=== PATIENT | female | born 1990 | race American Indian/Alaskan Native ===

== ENCOUNTER 2017-01-08 22:34 | Emergency (ER) | payer MEDICAID ==
[2017-01-09 00:55] LABS: Bacteria,Urine 3+ /HPF (Negative); Bilirubin,Urine NEG (Negative); Blood,Urine NEG (Negative); Ketones,Urine NEG (Negative); Leukocyte Esterase,Urine TR (Negative); Mucus,Urine FEW /HPF; Nitrite,Urine NEG (Negative); Protein,Urine <15 mg/dL mg/dL (Negative); Urobilinogen,Urine < 2.0 mg/dL (<2.0)
[2017-01-09 01:51] VITALS: BP 125/79
[2017-01-09] MEDS ORDERED: DEPO-MEDROL IM ONE (03:35)
[2017-01-09] MEDS ORDERED: BENADRYL PO ONE (03:35)
--- NOTE | 2017-01-09 03:36 | Emergency Department Report ---
ED General Adult HPI - General Chief complaint: Skin Rash Stated complaint: RASH/POSS BLADDER INFECTION Time Seen by Provider: 01/09/17 03:01 Source: patient Mode of arrival: Ambulatory Limitations: No Limitations - History of Present Illness Initial comments: Patient complains of itchy red spots to both arms x one week. States starts off as red bumps that itch, which then gradually fade away. Reports a lot of itching, NO pain. States when one resolves others recurs. Denies known allergy or exposure. Denies throat swelling or difficulty breathing, facial swelling, weakness, assess, fever, chills, nausea, vomiting. Patient reports frequent urination for about a week without painful urination, abdomen or flank pain, pelvic or vaginal pain. No other acute complaints today. LMP 12/24/16 Severity scale (0 -10): 0 - Related Data Previous Rx's Medication Instructions Recorded Last Taken Type Loratadine/Pseudoephedrine 1 tab PO Q12H PRN #30 tablet 01/09/17 Unknown Rx [Claritin-D 12HR] Nitrofurantoin Stevens/M-Cryst 100 mg PO Q12HR #6 capsule 01/09/17 Unknown Rx [Macrobid CAP] Prednisone [predniSONE 10 mg 10 mg PO .TAPER #1 tab.ds.pk 01/09/17 Unknown Rx (6-Day Pack, 21 Tabs)] Allergies Allergy/AdvReac Type Severity Reaction Status Date / Time Penicillins Allergy Itching Verified 01/08/17 11:10 ED Review of Systems ROS: Stated complaint: RASH/POSS BLADDER INFECTION Other details as noted in HPI Comment: All other systems reviewed and negative ED Past Medical Hx - Past Medical History Previous Medical History?: No Additional medical history: fibroids - Surgical History Past Surgical History?: No - Social History Smoking Status: Never Smoker Substance Use Type: None - Medications Home Medications: Home Medications Medication Instructions Recorded Confirmed Last Taken Type Loratadine/Pseudoephedrine 1 tab PO Q12H PRN #30 tablet 01/09/17 Unknown Rx [Claritin-D 12HR] Nitrofurantoin Stevens/M-Cryst 100 mg PO Q12HR #6 capsule 01/09/17 Unknown Rx [Macrobid CAP] Prednisone [predniSONE 10 mg 10 mg PO .TAPER #1 tab.ds.pk 01/09/17 Unknown Rx (6-Day Pack, 21 Tabs)] ED Physical Exam - General Limitations: No Limitations General appearance: alert, in no apparent distress - Head Head exam: Present: atraumatic, normocephalic - Eye Eye exam: Present: normal appearance, PERRL, EOMI. Absent: scleral icterus, conjunctival injection, periorbital swelling, periorbital tenderness - ENT ENT exam: Present: normal exam, normal orophraynx, mucous membranes moist, TM's normal bilaterally, normal external ear exam - Neck Neck exam: Present: normal inspection, full ROM. Absent: tenderness, meningismus, lymphadenopathy - Respiratory Respiratory exam: Present: normal lung sounds bilaterally. Absent: respiratory distress - Cardiovascular Cardiovascular Exam: Present: regular rate, normal rhythm - GI/Abdominal GI/Abdominal exam: Present: soft, normal bowel sounds. Absent: distended, tenderness, guarding, rebound, rigid - Extremities Exam Extremities exam: Present: full ROM, normal capillary refill. Absent: tenderness, pedal edema, joint swelling - Back Exam Back exam: Present: normal inspection, full ROM. Absent: tenderness, CVA tenderness (R), CVA tenderness (L) - Neurological Exam Neurological exam: Present: alert, oriented X3, normal gait. Absent: motor sensory deficit - Psychiatric Psychiatric exam: Present: normal affect, normal mood - Skin Skin exam: Present: warm, dry, intact, erythema, urticaria (b/l UE display multiple erythematous wheals varying sizes. No weeping. No crusting.). Absent : cyanosis, diaphoretic, petechiae, pallor, abrasion, ecchymosis ED Course Vital Signs 01/08/17 01/09/17 22:46 01:50 Temperature 97.5 F L 98.4 F Pulse Rate 85 75 Respiratory 18 20 Rate Blood Pressure 119/75 Blood Pressure 125/79 [Right] O2 Sat by Pulse 100 99 Oximetry ED Medical Decision Making - Medical Decision Making 26-year-old female with urticaria rash and UTI. Patient is stable in no apparent cardiopulmonary distress. She will be DC'd on oral Macrobid, prednisone pack, and Claritin (see prescriptions). Patient education, follow-up /referral, and return instructions provided. She verbalized understanding and is agreeable to plan. Critical care attestation.: If time is entered above; I have spent that time in minutes in the direct care of this critically ill patient, excluding procedure time. ED Disposition Clinical Impression: Hives UTI (urinary tract infection) Qualifiers: Urinary tract infection type: site unspecified Hematuria presence: without hematuria Qualified Code(s): N39.0 - Urinary tract infection, site not specified Disposition: DISCHARGED TO HOME OR SELFCARE Is pt being admited?: No Does the pt Need Aspirin: No Condition: Stable Instructions: Urinary Tract Infection in Women (ED), Urticaria (ED) Prescriptions: Loratadine/Pseudoephedrine [Claritin-D 12HR] 1 tab PO Q12H PRN #30 tablet PRN Reason: Itching Nitrofurantoin Stevens/M-Cryst [Macrobid CAP] 100 mg PO Q12HR #6 capsule Prednisone [predniSONE 10 mg (6-Day Pack, 21 Tabs)] 10 mg PO .TAPER #1 tab.ds.pk Referrals: [facility] [Outside] - 2-3 Days PRIMARY CARE, [Primary Care Provider] - 2-3 Days EDNA WEIR MD [Staff Physician] - 3-5 Days
== END 2017-01-09 04:00 | disposition home or self-care (01) ==
LOC: ED 22:34
DX: N39.0 Urinary tract infection, site not specified (principal); L50.9 Urticaria, unspecified; Z88.0 Allergy status to penicillin
CPT/HCPCS: 81001; 96372; 99283; J1040

== ENCOUNTER 2017-01-18 06:15 | Emergency (ER) | payer MEDICAID ==
[2017-01-18 07:01] VITALS: BP 113/69
--- NOTE | 2017-01-18 08:15 | Emergency Department Report ---
- General Chief Complaint: Upper Respiratory Infection Stated Complaint: THROAT PAIN/CONGESTION Time Seen by Provider: 01/18/17 08:10 Source: patient Mode of arrival: Ambulatory Limitations: No Limitations - History of Present Illness Initial Comments: 26-year-old -[place] female comes in for complaint of sore throat and nonproductive cough 2-3 days with chest congestion and sneezing and runny nose. She denies any fever or chills no nausea no vomiting no ear itching no eye drainage. She has taken no medications. Asked medical history she currently takes no medication on a daily basis. MD Complaint: cough, sore throat, rhinorrhea, nasal congestion - Related Data Previous Rx's Medication Instructions Recorded Last Taken Type Loratadine/Pseudoephedrine 1 tab PO Q12H PRN #30 tablet 01/09/17 Unknown Rx [Claritin-D 12HR] Nitrofurantoin [place]/M-Cryst 100 mg PO Q12HR #6 capsule 01/09/17 Unknown Rx [Macrobid CAP] Prednisone [predniSONE 10 mg 10 mg PO .TAPER #1 tab.ds.pk 01/09/17 Unknown Rx (6-Day Pack, 21 Tabs)] Fluticasone [Flonase] 1 spray NS QDAY #1 bottle 01/18/17 Unknown Rx Ibuprofen [Motrin 600 MG tab] 600 mg PO Q8H PRN #45 tablet 01/18/17 Unknown Rx Loratadine/Pseudoephedrine 1 each PO BID #60 tab.er.12h 01/18/17 Unknown Rx [Allergy-Congestion Rlf-D 12Hr] Allergies Allergy/AdvReac Type Severity Reaction Status Date / Time Penicillins Allergy Itching Verified 01/08/17 11:10 ED Review of Systems ROS: Stated complaint: THROAT PAIN/CONGESTION Other details as noted in HPI Constitutional: denies: chills, fever Eyes: denies: eye pain, eye discharge, vision change ENT: throat pain, congestion (nasal congestion), other (sneezing) Respiratory: cough Cardiovascular: denies: chest pain, palpitations Gastrointestinal: denies: abdominal pain, nausea, diarrhea Genitourinary: denies: urgency, dysuria, discharge ED Past Medical Hx - Past Medical History Previous Medical History?: Yes Additional medical history: fibroids - Surgical History Past Surgical History?: No - Social History Smoking Status: Never Smoker - Medications Home Medications: Home Medications Medication Instructions Recorded Confirmed Last Taken Type Loratadine/Pseudoephedrine 1 tab PO Q12H PRN #30 tablet 01/09/17 Unknown Rx [Claritin-D 12HR] Nitrofurantoin [place]/M-Cryst 100 mg PO Q12HR #6 capsule 01/09/17 Unknown Rx [Macrobid CAP] Prednisone [predniSONE 10 mg 10 mg PO .TAPER #1 tab.ds.pk 01/09/17 Unknown Rx (6-Day Pack, 21 Tabs)] Fluticasone [Flonase] 1 spray NS QDAY #1 bottle 01/18/17 Unknown Rx Ibuprofen [Motrin 600 MG tab] 600 mg PO Q8H PRN #45 tablet 01/18/17 Unknown Rx Loratadine/Pseudoephedrine 1 each PO BID #60 tab.er.12h 01/18/17 Unknown Rx [Allergy-Congestion Rlf-D 12Hr] ED Physical Exam - General Limitations: No Limitations General appearance: alert, in no apparent distress - Head Head exam: Present: atraumatic, normocephalic - Eye Eye exam: Present: normal appearance, PERRL, EOMI Pupils: Present: normal accommodation - ENT ENT exam: Present: mucous membranes moist, TM's normal bilaterally - Neck Neck exam: Present: normal inspection. Absent: tenderness, lymphadenopathy - Respiratory Respiratory exam: Present: normal lung sounds bilaterally. Absent: respiratory distress - Cardiovascular Cardiovascular Exam: Present: regular rate, normal rhythm. Absent: systolic murmur, diastolic murmur, rubs, gallop - GI/Abdominal GI/Abdominal exam: Present: soft, normal bowel sounds ED Course Vital Signs 01/18/17 06:32 Temperature 98.8 F Pulse Rate 85 Respiratory 18 Rate Blood Pressure 113/69 O2 Sat by Pulse 100 Oximetry ED Medical Decision Making - Medical Decision Making Patient's been evaluated by this provider fast track. We will discharge patient on Jahaira-D, ibuprofen 600 mg by mouth 3 times a day, Flonase 50 g 1 spray to each nostril daily. Have her follow-up with her primary care provider. Critical care attestation.: If time is entered above; I have spent that time in minutes in the direct care of this critically ill patient, excluding procedure time. ED Disposition Clinical Impression: Seasonal allergies Qualifiers: Allergic rhinitis trigger: unspecified Qualified Code(s): J30.2 - Other seasonal allergic rhinitis Disposition: DISCHARGED TO HOME OR SELFCARE Is pt being admited?: No Does the pt Need Aspirin: No Instructions: Allergies (ED) Additional Instructions: Take medications as prescribed. 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 Prescriptions: Fluticasone [Flonase] 1 spray NS QDAY #1 bottle Ibuprofen [Motrin 600 MG tab] 600 mg PO Q8H PRN #45 tablet PRN Reason: Pain Loratadine/Pseudoephedrine [Allergy-Congestion Rlf-D 12Hr] 1 each PO BID #60 tab.er.12h Referrals: PRIMARY CAREMD [Primary Care Provider] - 3-5 Days SALTY SAHU MD [Staff Physician] - 3-5 Days [facility] [Provider Group] - 3-5 Days Forms: Work/School Release Form(ED)
== END 2017-01-18 08:48 | disposition home or self-care (01) ==
LOC: ED 06:15
DX: J30.2 Other seasonal allergic rhinitis (principal)
CPT/HCPCS: 99282

== ENCOUNTER 2017-05-07 10:57 | Emergency (ER) | payer SELFPAY ==
[2017-05-07 11:11] VITALS: BP 122/65
[2017-05-07] MEDS: TORADOL IM ONE (12:29)
[2017-05-07] MEDS: REGLAN PO ONE (12:29)
--- NOTE | 2017-05-07 18:49 | Emergency Department Report ---
Entered by ISAAC ULLOA, acting as scribe for WILBUR VIERA NP. ED Headache HPI - General Chief Complaint: Headache Stated Complaint: SEVERE HEADACHES Time Seen by Provider: 05/07/17 12:17 Source: patient, family Exam Limitations: no limitations - History of Present Illness Initial Comments: This is a 26 y/o female, nontoxic, well nourished in appearance, no acute signs of distress with PMHx of headaches, presents with headache that began 2 days ago and became worse today. Denies vision changes, nausea, sinus pressure, cough , wheezing. vomiting, abdominal pain, SOB, chest pain, thunderclap headache, dizziness, stiff neck, fever and chills. Pain is described as frontal, achy, and 10/10 on a severity scale. Patient has experienced similar symptoms in the past but today's symptoms are worse. Patient stated has chronic headaches for the past years. Denies any alleviating factors despite taking Tylenol DBA and no aggravating factors. Allergic to penicillins. Timing/Duration: increasing Quality: severe Head Injury Location: frontal Recent Head Trauma: no recent headache/trauma, chronic headaches Associated Symptoms: denies symptoms. denies: confusion, fatigue, facial pain, fever/chills, flushing, loss of consciousness, nausea/vomiting, nasal congestion , nasal drainage, numbness in legs/feet, seizures, stiff neck, vision changes, weakness, other (SOB, chest pain) Allergies/Adverse Reactions: Allergies Penicillins Allergy (Verified 01/08/17 11:10) Itching Home Medications: Ambulatory Orders Loratadine/Pseudoephedrine [Claritin-D 12HR] 1 tab PO Q12H PRN #30 tablet Nitrofurantoin [place]/M-Cryst [Macrobid CAP] 100 mg PO Q12HR #6 capsule 01/09/17 Prednisone [predniSONE 10 mg (6-Day Pack, 21 Tabs)] 10 mg PO .TAPER #1 tab.ds.pk 01/09/17 Fluticasone [Flonase] 1 spray NS QDAY #1 bottle 01/18/17 Ibuprofen [Motrin 600 MG tab] 600 mg PO Q8H PRN #45 tablet 01/18/17 Loratadine/Pseudoephedrine [Allergy-Congestion Rlf-D 12Hr] 1 each PO BID #60 tab.er.12h 01/18/17 Ibuprofen [Motrin 600 MG tab] 600 mg PO Q8H PRN #30 tablet 05/07/17 ED Review of Systems Comment: All other systems reviewed and negative Constitutional: denies: chills, fever Eyes: denies: vision change ENT: denies: ear pain, throat pain Respiratory: denies: shortness of breath Cardiovascular: denies: chest pain Endocrine: no symptoms reported Gastrointestinal: denies: abdominal pain, nausea, vomiting Genitourinary: denies: urgency, dysuria, discharge Musculoskeletal: denies: back pain, joint swelling, arthralgia Skin: denies: rash, lesions Neurological: headache Psychiatric: denies: anxiety, depression Hematological/Lymphatic: denies: easy bleeding, easy bruising ED Past Medical Hx - Past Medical History Previous Medical History?: Yes Additional medical history: fibroids, Vaginal dleivery x 3 - Surgical History Past Surgical History?: No - Social History Smoking Status: Never Smoker Substance Use Type: Non Opiate Pain - Medications Home Medications: Home Medications Medication Instructions Recorded Confirmed Last Taken Type Loratadine/Pseudoephedrine 1 tab PO Q12H PRN #30 tablet 01/09/17 Unknown Rx [Claritin-D 12HR] Nitrofurantoin [place]/M-Cryst 100 mg PO Q12HR #6 capsule 01/09/17 Unknown Rx [Macrobid CAP] Prednisone [predniSONE 10 mg 10 mg PO .TAPER #1 tab.ds.pk 01/09/17 Unknown Rx (6-Day Pack, 21 Tabs)] Fluticasone [Flonase] 1 spray NS QDAY #1 bottle 01/18/17 Unknown Rx Ibuprofen [Motrin 600 MG tab] 600 mg PO Q8H PRN #45 tablet 01/18/17 Unknown Rx Loratadine/Pseudoephedrine 1 each PO BID #60 tab.er.12h 01/18/17 Unknown Rx [Allergy-Congestion Rlf-D 12Hr] Ibuprofen [Motrin 600 MG tab] 600 mg PO Q8H PRN #30 tablet 05/07/17 Unknown Rx ED Physical Exam - General Limitations: No Limitations General appearance: alert, in no apparent distress - Head Head exam: Present: atraumatic, normocephalic, normal inspection - Eye Eye exam: Present: normal appearance, PERRL, EOMI. Absent: scleral icterus, conjunctival injection, nystagmus, periorbital swelling, periorbital tenderness Pupils: Present: normal accommodation - ENT ENT exam: Present: normal exam, normal orophraynx, mucous membranes moist, TM's normal bilaterally, normal external ear exam - Neck Neck exam: Present: normal inspection, full ROM. Absent: tenderness, meningismus, lymphadenopathy, thyromegaly - Respiratory Respiratory exam: Present: normal lung sounds bilaterally. Absent: respiratory distress, wheezes, rales, rhonchi, stridor, chest wall tenderness, accessory muscle use, decreased breath sounds, prolonged expiratory - Cardiovascular Cardiovascular Exam: Present: regular rate, normal rhythm, normal heart sounds. Absent: bradycardia, tachycardia, irregular rhythm, systolic murmur, diastolic murmur, rubs, gallop - GI/Abdominal GI/Abdominal exam: Present: soft, normal bowel sounds. Absent: distended, tenderness, guarding, rebound, rigid, diminished bowel sounds - Extremities Exam Extremities exam: Present: normal inspection, full ROM, normal capillary refill. Absent: tenderness, pedal edema, joint swelling, calf tenderness - Back Exam Back exam: Present: normal inspection, full ROM. Absent: tenderness, CVA tenderness (R), CVA tenderness (L), muscle spasm, paraspinal tenderness, vertebral tenderness, rash noted - Neurological Exam Neurological exam: Present: alert, oriented X3, CN II-XII intact, normal gait - Expanded Neurological Exam Expanded Patient oriented to: Present: person, place, time Speech: Present: fluid speech (normal speech) Cranial nerves: EOM's Intact: Normal, Gag Reflex: Normal, Tongue Deviation: Normal, Nystagmus: Normal, Facial Sensation: Normal, Facial Palsy with Forehead Movement: Normal, Facial Palsy without Forehead Movement: Normal Cerebellar function: Finger to Nose: Normal, Heel to Harman: Normal, Romberg: Normal Upper motor neuron: Jordon Neglect: Normal, Pronator Drift: Normal, Babinski Sign : Normal, Sensory Extinction: Normal Sensory exam: Upper Extremity Light Touch: Normal, Upper Extremity Pin Prick: Normal, Upper Extremity Temperature: Normal, UE 2 Point Discrimination: Normal, Lower Extremity Light Touch: Normal, Lower Extremity Pin Prick: Normal, Lower Extremity Temperature: Normal, LE 2 Point Discrimination: Normal Motor strength exam: RUE: 5, LUE: 5, RLE: 5, LLE: 5 DTR: bicep (R): 2+, bicep (L): 2+, tricep (R): 2+, tricep (L): 2+, knee (R): 2+ , knee (L): 2+, ankle (R): 2+, ankle (L): 2+ Best Eye Response (Dumont): (4) open spontaneously Best Motor Response (Dumont): (6) obeys commands Best Verbal Response (Sugey): (5) oriented Dumont Total: 15 - Psychiatric Psychiatric exam: Present: normal affect, normal mood - Skin Skin exam: Present: warm, dry, intact, normal color. Absent: rash ED Course Vital Signs 05/07/17 11:08 Temperature 98.2 F Pulse Rate 83 Respiratory 18 Rate Blood Pressure 122/65 O2 Sat by Pulse 97 Oximetry - Reevaluation(s) Reevaluation #1: 05/07/17 12:51 Patient stated headache has subsided after receiving Toradol IM in ED. Patient did level is a 0 out of 10 currently. ED Medical Decision Making - Medical Decision Making ED course: This is a 26-year-old female that presents with chronic headache. 1- after my physical exam patient received Toradol 60 mg by mouth in the ED- patient stated symptoms have subsided to 0 out of 10 headache. Patient also stated had a kidney function test as well as other labs by her primary care doctor 3 months with normal results. 2- patient received ibuprofen 600 mg by mouth at the time of discharge and was instructed to follow-up with her primary care doctor in 3-5 days or if symptoms worsen such as thunderclap headache, nausea, vomiting, chest pain, short of breath, blurry vision or visual changes report back to emergency room as was possible 3- at time time of discharge, the patient does not seem toxic or ill in appearance. No acute signs of distress noted. Patient agrees to discharge treatment plan of care. No further questions noted by the patient. ED Disposition Clinical Impression: Headache Qualifiers: Headache type: unspecified Headache chronicity pattern: chronic headache Intractability: not intractable Qualified Code(s): R51 - Headache Disposition: DC-01 TO HOME OR SELFCARE Is pt being admited?: No Does the pt Need Aspirin: No Condition: Stable Instructions: Acute Headache (ED), Ibuprofen (By mouth) Additional Instructions: follow-up with your primary care doctor in 3-5 days or if symptoms worsen such as thunderclap headache, nausea, vomiting, chest pain, short of breath, blurry vision or visual changes report back to emergency room as was possible Take ibuprofen for pain as needed Prescriptions: Ibuprofen [Motrin 600 MG tab] 600 mg PO Q8H PRN #30 tablet PRN Reason: Pain Referrals: PRIMARY CAREMD [Primary Care Provider] - 3-5 Days COLLETTE SMART JR, MD [Staff Physician] - 3-5 Days [facility] [Outside] - 3-5 Days [facility] [Outside] - 3-5 Days Forms: Work/School Release Form(ED) This documentation as recorded by the ARTEMIO shanks ELIZABETH,accurately reflects the service I personally performed and the decisions made by ,WILBUR VIERA, EMA.
== END 2017-05-07 13:00 | disposition home or self-care (01) ==
LOC: ED 10:57
DX: R51 Headache (principal)
CPT/HCPCS: 96372; 99282; J1885

== ENCOUNTER 2017-06-21 21:39 | Emergency (ER) | payer SELFPAY ==
[2017-06-21 22:12] LABS: Basophils % (Auto) 0.7 % (0.0-1.8); Eosinophils % (Auto) 1.2 % (0.0-4.3); Hematocrit 35.6 % (30.3-42.9); Hemoglobin 11.9 gm/dl (10.1-14.3); Mean Corpuscular HGB Conc 33 % (30-34); Mean Corpuscular Hemoglobin 31 pg (28-32); Mean Corpuscular Volume 93 fl (79-97); Platelet Count 310 K/mm3 (140-440); Red Blood Count 3.83 M/mm3 (3.65-5.03); Red Cell Distribution Width 13.7 % (13.2-15.2); White Blood Count 7.5 K/mm3 (4.5-11.0)
[2017-06-21 22:34] LABS: Alanine Aminotransferase 10 units/L (7-56); Albumin 3.9 g/dL (3.9-5); Albumin/Globulin Ratio 1.1 %; Alkaline Phosphatase 47 units/L (35-129); Anion Gap 17 mmol/L; BUN/Creatinine Ratio 22.85; Blood Urea Nitrogen 16 mg/dL (7-17); Calcium 8.9 mg/dL (8.4-10.2); Carbon Dioxide 24 mmol/L (22-30); Chloride 101.1 mmol/L (98-107); Glucose 92 mg/dL (65-100); Lipase 34 units/L (13-60); Potassium 3.9 mmol/L (3.6-5.0); Sodium 138 mmol/L (137-145); Total Protein 7.3 g/dL (6.3-8.2)
[2017-06-21 23:50] LABS: Bilirubin,Urine NEG (Negative); Blood,Urine NEG (Negative); Ketones,Urine NEG (Negative); Leukocyte Esterase,Urine SM (Negative); Mucus,Urine FEW /HPF; Nitrite,Urine NEG (Negative); Protein,Urine <15 mg/dL mg/dL (Negative)
[2017-06-22] MEDS ORDERED: TORADOL IV ONE (04:31)
[2017-06-22] MEDS ORDERED: NACL 0.9% 1000 ML 1,000 ML IV ONE (04:31)
[2017-06-22] MEDS ORDERED: MORPHINE IV ONE (04:31)
--- NOTE | 2017-06-22 04:32 | Emergency Department Report ---
ED Abdominal Pain HPI - General Chief Complaint: Abdominal Pain Stated Complaint: ABD PAIN Time Seen by Provider: 06/22/17 04:20 Source: patient Mode of arrival: Ambulatory Limitations: No Limitations - History of Present Illness Initial Comments: This is a 26-year-old female. She is previously unknown to me. She does not have a primary care doctor or diver assistant. The patient presents to the ER complaining of suprapubic and right lower quadrant pain. The pain is achy and intermittent. It increases with palpation and decreases with rest. It does not radiate anywhere. There is no nausea, vomiting or diarrhea. No irritative or obstructive urinary symptoms. Patient denies dysuria but admits to frequent urination. She also complains of mild discomfort and a vaginal discharge. Patient has had a few sexual partners in the past year, typically does not wear condoms. MD Complaint: abdominal pain -: Gradual Location: LLQ, RLQ, suprapubic Migration to: no migration Severity: mild Severity scale (0 -10): 3 Quality: cramping Consistency: intermittent Improves With: rest Worsens With: movement Associated Symptoms: denies: nausea, vomiting, dysuria - Related Data Previous Rx's Medication Instructions Recorded Last Taken Type Loratadine/Pseudoephedrine 1 tab PO Q12H PRN #30 tablet 01/09/17 Unknown Rx [Claritin-D 12HR] Nitrofurantoin [place]/M-Cryst 100 mg PO Q12HR #6 capsule 01/09/17 Unknown Rx [Macrobid CAP] Prednisone [predniSONE 10 mg 10 mg PO .TAPER #1 tab.ds.pk 01/09/17 Unknown Rx (6-Day Pack, 21 Tabs)] Fluticasone [Flonase] 1 spray NS QDAY #1 bottle 01/18/17 Unknown Rx Ibuprofen [Motrin 600 MG tab] 600 mg PO Q8H PRN #45 tablet 01/18/17 Unknown Rx Loratadine/Pseudoephedrine 1 each PO BID #60 tab.er.12h 01/18/17 Unknown Rx [Allergy-Congestion Rlf-D 12Hr] Ibuprofen [Motrin 600 MG tab] 600 mg PO Q8H PRN #30 tablet 05/07/17 Unknown Rx Ibuprofen [Motrin] 600 mg PO Q8H PRN #30 tablet 06/22/17 Unknown Rx Ondansetron [Zofran Odt] 4 mg PO QID PRN #20 tab.rapdis 06/22/17 Unknown Rx metroNIDAZOLE 0.75% [Vandazole 1 applicator VG QHS #5 tube 06/22/17 Unknown Rx 0.75% VAGINAL] Allergies Allergy/AdvReac Type Severity Reaction Status Date / Time Penicillins Allergy Itching Verified 01/08/17 11:10 ED Review of Systems ROS: Stated complaint: ABD PAIN Other details as noted in HPI Constitutional: denies: fever Eyes: denies: vision change ENT: denies: epistaxis Respiratory: denies: cough Cardiovascular: denies: chest pain Gastrointestinal: abdominal pain Genitourinary: frequency, discharge Musculoskeletal: denies: back pain Skin: denies: lesions Neurological: denies: weakness Psychiatric: denies: depression ED Past Medical Hx - Past Medical History Previous Medical History?: Yes Additional medical history: fibroids, Vaginal dleivery x 3 - Surgical History Past Surgical History?: No - Social History Smoking Status: Never Smoker Substance Use Type: None - Medications Home Medications: Home Medications Medication Instructions Recorded Confirmed Last Taken Type Loratadine/Pseudoephedrine 1 tab PO Q12H PRN #30 tablet 01/09/17 Unknown Rx [Claritin-D 12HR] Nitrofurantoin [place]/M-Cryst 100 mg PO Q12HR #6 capsule 01/09/17 Unknown Rx [Macrobid CAP] Prednisone [predniSONE 10 mg 10 mg PO .TAPER #1 tab.ds.pk 01/09/17 Unknown Rx (6-Day Pack, 21 Tabs)] Fluticasone [Flonase] 1 spray NS QDAY #1 bottle 01/18/17 Unknown Rx Ibuprofen [Motrin 600 MG tab] 600 mg PO Q8H PRN #45 tablet 01/18/17 Unknown Rx Loratadine/Pseudoephedrine 1 each PO BID #60 tab.er.12h 01/18/17 Unknown Rx [Allergy-Congestion Rlf-D 12Hr] Ibuprofen [Motrin 600 MG tab] 600 mg PO Q8H PRN #30 tablet 05/07/17 Unknown Rx Ibuprofen [Motrin] 600 mg PO Q8H PRN #30 tablet 06/22/17 Unknown Rx Ondansetron [Zofran Odt] 4 mg PO QID PRN #20 tab.rapdis 06/22/17 Unknown Rx metroNIDAZOLE 0.75% [Vandazole 1 applicator VG QHS #5 tube 06/22/17 Unknown Rx 0.75% VAGINAL] ED Physical Exam - General Limitations: No Limitations General appearance: alert, in no apparent distress - Head Head exam: Present: atraumatic, normocephalic - Eye Eye exam: Present: normal appearance, EOMI. Absent: nystagmus - ENT ENT exam: Present: normal exam, normal orophraynx, mucous membranes moist, normal external ear exam - Neck Neck exam: Present: normal inspection, full ROM. Absent: tenderness, meningismus - Respiratory Respiratory exam: Present: normal lung sounds bilaterally. Absent: respiratory distress, wheezes, rales, rhonchi, stridor, chest wall tenderness, accessory muscle use, decreased breath sounds, prolonged expiratory - Cardiovascular Cardiovascular Exam: Present: regular rate, normal rhythm, normal heart sounds. Absent: systolic murmur, diastolic murmur, rubs, gallop - GI/Abdominal GI/Abdominal exam: Present: soft, tenderness, normal bowel sounds, other (there is suprapubic and right lower quadrant tenderness to deep palpation. There is no rebound, guarding or peritoneal signs.). Absent: distended, rigid, pulsatile mass - External exam: Present: normal external exam Speculum exam: Present: normal speculum exam, cervical discharge. Absent: vaginal bleeding, foreign body Bi-manual exam: Present: normal bi-manual exam, other (escorted by [facility] during professional nursing assistant exam). Absent: cervical motion tendernes, adnexal tenderness, adnexal mass - Extremities Exam Extremities exam: Present: normal inspection, full ROM, normal capillary refill. Absent: pedal edema, joint swelling, calf tenderness - Back Exam Back exam: Present: normal inspection, full ROM. Absent: tenderness, CVA tenderness (R), CVA tenderness (L), muscle spasm, paraspinal tenderness, vertebral tenderness - Neurological Exam Neurological exam: Present: alert, oriented X3, normal gait, other (Extraocular movements intact. Tongue midline. No facial droop. Facial sensation intact to light touch in the V1, V2, V3 distribution bilaterally. 5 and 5 strength in 4 extremities.. Sensation is intact to light touch in 4 extremities.). Absent : motor sensory deficit - Psychiatric Psychiatric exam: Present: normal affect, normal mood - Skin Skin exam: Present: warm, dry, intact, normal color. Absent: rash ED Course Vital Signs 06/21/17 06/22/17 06/22/17 21:52 02:07 02:10 Temperature 98.3 F Pulse Rate 81 72 72 Respiratory 18 14 16 Rate Blood Pressure 110/62 Blood Pressure 137/85 [Right] O2 Sat by Pulse 99 Oximetry 06/22/17 06/22/17 06/22/17 02:20 02:30 02:40 Temperature Pulse Rate 67 82 68 Respiratory 14 19 21 Rate Blood Pressure 110/62 108/60 108/60 Blood Pressure [Right] O2 Sat by Pulse 99 100 100 Oximetry 06/22/17 06/22/17 06/22/17 02:50 03:00 03:10 Temperature Pulse Rate 69 74 68 Respiratory 19 19 21 Rate Blood Pressure 108/60 112/66 112/66 Blood Pressure [Right] O2 Sat by Pulse 99 99 98 Oximetry 06/22/17 06/22/17 06/22/17 03:20 03:30 03:40 Temperature Pulse Rate 85 77 76 Respiratory 18 18 19 Rate Blood Pressure 112/66 110/68 112/66 Blood Pressure [Right] O2 Sat by Pulse 97 99 99 Oximetry 06/22/17 06/22/17 06/22/17 05:17 05:29 05:30 Temperature Pulse Rate Respiratory 18 18 Rate Blood Pressure 112/66 Blood Pressure [Right] O2 Sat by Pulse 98 Oximetry 06/22/17 06/22/17 06/22/17 06:06 06:10 06:20 Temperature Pulse Rate Respiratory 19 Rate Blood Pressure 112/66 94/51 Blood Pressure [Right] O2 Sat by Pulse 99 99 100 Oximetry 06/22/17 06/22/17 06:30 07:00 Temperature Pulse Rate Respiratory Rate Blood Pressure 94/51 100/55 Blood Pressure [Right] O2 Sat by Pulse 100 95 Oximetry ED Medical Decision Making - Lab Data Result diagrams: 06/21/17 22:01 06/21/17 22:01 Vital Signs 06/21/17 06/22/17 06/22/17 21:52 02:07 02:10 Temperature 98.3 F Pulse Rate 81 72 72 Respiratory 18 14 16 Rate Blood Pressure 110/62 Blood Pressure 137/85 [Right] O2 Sat by Pulse 99 Oximetry 06/22/17 06/22/1706/22/17 02:20 02:30 02:40 Temperature Pulse Rate 67 82 68 Respiratory 14 19 21 Rate Blood Pressure 110/62 108/60 108/60 Blood Pressure [Right] O2 Sat by Pulse 99 100 100 Oximetry 06/22/17 06/22/17 06/22/17 05:29 05:30 06:06 Temperature Pulse Rate Respiratory 18 18 19 Rate Blood Pressure Blood Pressure [Right] O2 Sat by Pulse 99 Oximetry Lab Results 06/21/17 06/21/17 06/21/17 Range/Units 22:01 22:01 22:01 WBC 7.5 (4.5-11.0) K/mm3 RBC 3.83 (3.65-5.03) M/mm3 Hgb 11.9 (10.1-14.3) gm/dl Hct 35.6 (30.3-42.9) % MCV 93 (79-97) fl MCH 31 (28-32) pg MCHC 33 (30-34) % RDW 13.7 (13.2-15.2) % Plt Count 310 (140-440) K/mm3 Lymph % (Auto) 41.0 H (13.4-35.0) % [place] % (Auto) 8.3 H (0.0-7.3) % Eos % (Auto) 1.2 (0.0-4.3) % Baso % (Auto) 0.7 (0.0-1.8) % Lymph # 3.1 (1.2-5.4) K/mm3 [place] # 0.6 (0.0-0.8) K/mm3 Eos # 0.1 (0.0-0.4) K/mm3 Baso # 0.1 (0.0-0.1) K/mm3 Seg Neutrophils % 48.8 (40.0-70.0) % Seg Neutrophils # 3.7 (1.8-7.7) K/mm3 Sodium 138 (137-145) mmol/L Potassium 3.9 (3.6-5.0) mmol/L Chloride 101.1 (98-107) mmol/L Carbon Dioxide 24 (22-30) mmol/L Anion Gap 17 mmol/L BUN 16 (7-17) mg/dL Creatinine 0.7 (0.7-1.2) mg/dL Estimated GFR > 60 ml/min BUN/Creatinine Ratio 22.85 % Glucose 92 (65-100) mg/dL Calcium 8.9 (8.4-10.2) mg/dL Total Bilirubin 0.20 (0.1-1.2) mg/dL AST 14 (5-40) units/L ALT 10 (7-56) units/L Alkaline Phosphatase 47 (35-129) units/L Total Protein 7.3 (6.3-8.2) g/dL Albumin 3.9 (3.9-5) g/dL Albumin/Globulin Ratio 1.1 % Lipase 34 (13-60) units/L HCG, Qual Negative (Negative) Urine Color (Yellow) Urine Turbidity (Clear) Urine pH (5.0-7.0) Ur Specific Media (1.003-1.030) Urine Protein (Negative) mg/dL Urine Glucose (UA) (Negative) mg/dL Urine Ketones (Negative) mg/dL Urine Blood (Negative) Urine Nitrite (Negative) Urine Bilirubin (Negative) Urine Urobilinogen (<2.0) mg/dL Ur Leukocyte Esterase (Negative) Urine WBC (Auto) (0.0-6.0) /HPF Urine RBC (Auto) (0.0-6.0) /HPF U Epithel Cells (Auto) (0-13.0) /HPF Urine Mucus /HPF 06/21/ Range/Units Unknown WBC (4.5-11.0) K/mm3 RBC (3.65-5.03) M/mm3 Hgb (10.1-14.3) gm/dl Hct (30.3-42.9) % MCV (79-97) fl MCH (28-32) pg MCHC (30-34) % RDW (13.2-15.2) % Plt Count (140-440) K/mm3 Lymph % (Auto) (13.4-35.0) % [place] % (Auto) (0.0-7.3) % Eos % (Auto) (0.0-4.3) % Baso % (Auto) (0.0-1.8) % Lymph # (1.2-5.4) K/mm3 [place] # (0.0-0.8) K/mm3 Eos # (0.0-0.4) K/mm3 Baso # (0.0-0.1) K/mm3 Seg Neutrophils % (40.0-70.0) % Seg Neutrophils # (1.8-7.7) K/mm3 Sodium (137-145) mmol/L Potassium (3.6-5.0) mmol/L Chloride (98-107) mmol/L Carbon Dioxide (22-30) mmol/L Anion Gap mmol/L BUN (7-17) mg/dL Creatinine (0.7-1.2) mg/dL Estimated GFR ml/min BUN/Creatinine Ratio % Glucose (65-100) mg/dL Calcium (8.4-10.2) mg/dL Total Bilirubin (0.1-1.2) mg/dL AST (5-40) units/L ALT (7-56) units/L Alkaline Phosphatase (35-129) units/L Total Protein (6.3-8.2) g/dL Albumin (3.9-5) g/dL Albumin/Globulin Ratio % Lipase (13-60) units/L HCG, Qual (Negative) Urine Color Yellow (Yellow) Urine Turbidity Clear (Clear) Urine pH 6.0 (5.0-7.0) Ur Specific Media 1.021 (1.003-1.030) Urine Protein <15 mg/dl (Negative) mg/dL Urine Glucose (UA) Neg (Negative) mg/dL Urine Ketones Neg (Negative) mg/dL Urine Blood Neg (Negative) Urine Nitrite Neg (Negative) Urine Bilirubin Neg (Negative) Urine Urobilinogen 4.0 (<2.0) mg/dL Ur Leukocyte Esterase Sm (Negative) Urine WBC (Auto) 2.0 (0.0-6.0) /HPF Urine RBC (Auto) 2.0 (0.0-6.0) /HPF U Epithel Cells (Auto) 3.0 (0-13.0) /HPF Urine Mucus Few /HPF - Radiology Data Radiology results: report reviewed, image reviewed Transvaginal ultrasound demonstrates no evidence of ovarian torsion. The right ovary demonstrates a complex hypoechoic lesion. There is minimal free pelvic fluid. There are probable complex or hemorrhagic cysts noted in the right ovary. Nonspecific complex fluid or hemorrhagic products seen in the uterus. - Medical Decision Making Differential diagnosis: Ovarian cyst, pelvic inflammatory disease, vaginitis, ovarian torsion, appendicitis Assessment and plan: 26-year-old female with complaint of vaginitis and right lower quadrant pain. She is afebrile with reassuring vital signs. Gynecologic exam is benign, therefore think pelvic inflammatory disease unlikely. Pelvic ultrasound demonstrates no evidence of torsion, but complex ovarian cysts noted. CT scan of the abdomen and pelvis is pending. Patient is treated with pain medication and nausea medication. Care is transferred to the oncoming physician, Dr. Thomson, to follow up CT scan of the abdomen and pelvis. Assuming no surgical disease identified, plan is to discharge the patient with pain medication, metronidazole, nausea medication, instructions to follow up with gynecology. Critical care attestation.: If time is entered above; I have spent that time in minutes in the direct care of this critically ill patient, excluding procedure time. ED Disposition Clinical Impression: Abdominal pain Disposition: - TO HOME OR SELFCARE Is pt being admited?: No Does the pt Need Aspirin: No Condition: Stable Instructions: Ovarian Cyst (ED), Abdominal Pain (ED) Additional Instructions: Take the pain medication, nausea medication, antibiotic gel as directed. Follow up with an [facility] doctor within the next 7-10 days. Cultures were sent today, and results will be available in the next 3-5 days. Please have a diver assistant or primary care doctor contact medical records department to obtain culture results. Pelvic ultrasound today demonstrated nonspecific findings in the reproductive organs, most likely benign. However, it is very important to follow-up with an outpatient diver assistant as directed. Not following up as recommended may result in undiagnosed tumor/cancer/malignancy. Return to the ER right away with new pain, worsened pain, migration of pain, fevers, chills, chest pain, shortness of breath, intractable nausea or vomiting , inability to tolerate liquid feeds. Do not consume alcohol while taking the antibiotics or pain medicine. Prescriptions: metroNIDAZOLE 0.75% [Vandazole 0.75% VAGINAL] 1 applicator VG QHS #5 tube Ibuprofen [Motrin] 600 mg PO Q8H PRN #30 tablet PRN Reason: Pain Ondansetron [Zofran Odt] 4 mg PO QID PRN #20 tab.rapdis PRN Reason: Nausea Referrals: PRIMARY CARE, [Primary Care Provider] - 3-5 Days [facility] [Provider Group] - 3-5 Days [facility] [Provider Group] - 3-5 Days [facility] [Provider Group] - 3-5 Days Forms: Work/School Release Form(ED)
[2017-06-22] MEDS ORDERED: NACL ONE (05:18)
--- NOTE | 2017-06-22 05:42 | Ultrasound Report ---
FINAL REPORT EXAM: US PELVIS DUPLEX DOPPLER LTD, US TRANSVAGINAL. HISTORY: Right lower quadrant pain. TECHNIQUE: Directed transabdominal and transvaginal ultrasound examination of the pelvis was performed, with grayscale and color Doppler images obtained. No prior studies are available for comparison. FINDINGS: The uterus is anteverted, and measures 7.3 x 5.6 x 10.1 cm. Incidental note is made of several small nabothian cysts in the cervix. The endometrium measures 1.0 cm in thickness, within normal limits for patient's age. The endometrium is predominantly hyperechoic, with small central portion of relative hypoechogenicity at the fundus. This is nonspecific and may represent complex fluid and/or hematoma. The right ovary measures 2.7 x 2.6 x 4.3 cm, and contains somewhat complex hypoechoic lesions, measuring 2.3 cm in diameter and 1.8 cm in diameter. These hypoechoic structures both contain internal low-level echoes, and probably represent hemorrhagic cysts or complex cysts with debris. The left ovary measures 1.8 x 1.1 x 2.2 cm, and contains normal subcentimeter follicles. There is appropriate color doppler flow in both ovaries, without evidence of torsion. No other adnexal mass is seen. There is minimal pelvic free fluid, which may be physiologic. IMPRESSION: 1. Small central portion of relative hypoechogenicity seen within the endometrium at the fundus, nonspecific but probably complex fluid or hemorrhagic products. 2. Probable complex or hemorrhagic cysts in the right ovary, measuring up to 2.3 cm. Given internal complexity, follow-up imaging in 8 weeks is recommended to document resolution. 3. Minimal pelvic free fluid.
--- NOTE | 2017-06-22 05:46 | Ultrasound Report ---
FINAL REPORT EXAM: US PELVIS DUPLEX DOPPLER LTD, US TRANSVAGINAL. HISTORY: Right lower quadrant pain. TECHNIQUE: Directed transabdominal and transvaginal ultrasound examination of the pelvis was performed, with grayscale and color Doppler images obtained. No prior studies are available for comparison. FINDINGS: The uterus is anteverted, and measures 7.3 x 5.6 x 10.1 cm. Incidental note is made of several small nabothian cysts in the cervix. The endometrium measures 1.0 cm in thickness, within normal limits for patient's age. The endometrium is predominantly hyperechoic, with small central portion of relative hypoechogenicity at the fundus. This is nonspecific and may represent complex fluid and/or hematoma. The right ovary measures 2.7 x 2.6 x 4.3 cm, and contains somewhat complex hypoechoic lesions, measuring 2.3 cm in diameter and 1.8 cm in diameter. These hypoechoic structures both contain internal low-level echoes, and probably represent hemorrhagic cysts or complex cysts with debris. The left ovary measures 1.8 x 1.1 x 2.2 cm, and contains normal subcentimeter follicles. There is appropriate color doppler flow in both ovaries, without evidence of torsion. No other adnexal mass is seen. There is minimal pelvic free fluid, which may be physiologic. IMPRESSION: 1. Small central portion of relative hypoechogenicity seen within the endometrium at the fundus, nonspecific but probably complex fluid or hemorrhagic products. 2. Probable complex or hemorrhagic cysts in the right ovary, measuring up to 2.3 cm. Given these multiple findings, follow-up imaging in 8 weeks is recommended for further evaluation. 3. Minimal pelvic free fluid.
--- NOTE | 2017-06-22 06:45 | Cat Scan Report ---
FINAL REPORT EXAM: CT ABDOMEN PELVIS W CONTRAST. HISTORY: Right lower quadrant pain. TECHNIQUE: Axial CT images of the abdomen and pelvis were obtained, following the administration of intravenous contrast only. Delayed axial images through the kidneys and urinary bladder, and coronal and sagittal reformatted images were also obtained. Correlation is made with ultrasound exam also obtained 06/22/2017. FINDINGS: The liver, biliary tree, gallbladder, pancreas, spleen, adrenal glands, and kidneys are unremarkable. Evaluation of the bowel is limited due to lack of oral contrast. The stomach is collapsed, not well evaluated. There is moderate residual stool in the colon. There is no intestinal obstruction or free air. The appendix is air-filled, normal in appearance. The abdominal aorta is normal in caliber. There is no pathologic abdominal or pelvic lymphadenopathy. There is no free or loculated fluid collection. There is a 2.2 cm peripherally enhancing cystic lesion in the right ovary, most likely involuting cyst/follicle. The additional hypoechoic lesions seen in the right ovary is not clearly demonstrated on CT. There is mild heterogeneity of the uterine parenchyma. There is a 2.8 cm rounded lesion in the right superior uterine fundus, which demonstrates heterogeneous enhancement. This is nonspecific, but statistically likely represents complex/degenerating fibroid. Note that no corresponding lesion is seen on the sonographic images. The left adnexa demonstrates a grossly normal CT appearance. The urinary bladder is unremarkable. There is minimal posterior pelvic free fluid. There is a mild thoracolumbar levoscoliosis, which may be partially positional. There is a patchy region of relative radiolucency at posterolateral left lung base, most likely air trapping. IMPRESSION: 1. Normal CT appearance of the appendix. No intestinal obstruction or free air. 2. 2.8 cm heterogeneous enhancing, rounded lesion in the right superior uterine fundus, nonspecific. MRI exam with and without contrast should be considered for further evaluation. 3. 2.2 cm probable involuting cyst or follicle in the right ovary. Minimal pelvic free fluid. Taken together, these findings suggest recent ruptured ovarian cyst.
[2017-06-22 07:41] VITALS: BP 100/55
--- NOTE | 2017-06-22 07:41 | Emergency Department Report ---
Blank Doc - Documentation Documentation: CT results reviewed and discussed with the patient. Patient will be discharged home.
== END 2017-06-22 07:41 | disposition home or self-care (01) ==
LOC: ED 21:39
DX: R10.31 Right lower quadrant pain (principal); R10.32 Left lower quadrant pain; Z88.0 Allergy status to penicillin
CPT/HCPCS: 36415; 74177; 76830; 80053; 81001; 83690; 84703; 85025; 87210; 87591; 93975; 96361; 96374; 96375; 99284; J1885; J2270; J7030; Q9967

== ENCOUNTER 2017-12-07 09:08 | Emergency (ER) | payer SELFPAY ==
[2017-12-07 10:07] VITALS: BP 106/57
[2017-12-07 11:35] LABS: Bacteria,Urine 1+ /HPF (Negative); Bilirubin,Urine NEG (Negative); Blood,Urine NEG (Negative); Color,Urine Yellow (Yellow); Mucus,Urine 1+ /HPF; Nitrite,Urine NEG (Negative); Protein,Urine <15 mg/dL mg/dL (Negative)
[2017-12-07 13:25] LABS: HCG Qualitative,Urine Positive (Negative)
--- NOTE | 2017-12-07 15:58 | Emergency Department Report ---
ED Female HPI - General Chief complaint: Urogenital-Female Stated complaint: GUO/BLADDER INFECTION Time Seen by Provider: 12/07/17 14:36 Source: patient Mode of arrival: Ambulatory Limitations: No Limitations - History of Present Illness Initial comments: This is a 27 y.o. female presents with frequency, urgency, odor, and right flank pain for 4 days. Reports being but unsure of gestation. She have not been to OUTBOUND SALES ADVISOR because she doesn't have insurance. Denies nausea, vomiting, fever, discharge, pelvic pressure, and dysuria. -: days(s) (4) Location: other (right flank) Radiation: non-radiating Severity: mild Severity scale (0 -10): 6 Quality: aching Consistency: intermittent Improves with: urination Worsens with: none Are you Now?: Yes (No f/u with OUTBOUND SALES ADVISOR, uninsured) Last Menstrual Period: 10/21/17 EDC: 07/28/18 Associated Symptoms: denies other symptoms - Related Data Sexually active: Yes Previous Rx's Medication Instructions Recorded Last Taken Type Loratadine/Pseudoephedrine 1 tab PO Q12H PRN #30 tablet 01/09/17 Unknown Rx [Claritin-D 12HR] Nitrofurantoin [place]/M-Cryst 100 mg PO Q12HR #6 capsule 01/09/17 Unknown Rx [Macrobid CAP] Prednisone [predniSONE 10 mg 10 mg PO .TAPER #1 tab.ds.pk 01/09/17 Unknown Rx (6-Day Pack, 21 Tabs)] Fluticasone [Flonase] 1 spray NS QDAY #1 bottle 01/18/17 Unknown Rx Ibuprofen [Motrin 600 MG tab] 600 mg PO Q8H PRN #45 tablet 01/18/17 Unknown Rx Loratadine/Pseudoephedrine 1 each PO BID #60 tab.er.12h 01/18/17 Unknown Rx [Allergy-Congestion Rlf-D 12Hr] Ibuprofen [Motrin 600 MG tab] 600 mg PO Q8H PRN #30 tablet 05/07/17 Unknown Rx Ibuprofen [Motrin] 600 mg PO Q8H PRN #30 tablet 06/22/17 Unknown Rx Ondansetron [Zofran Odt] 4 mg PO QID PRN #20 tab.rapdis 06/22/17 Unknown Rx metroNIDAZOLE 0.75% [Vandazole 1 applicator VG QHS #5 tube 06/22/17 Unknown Rx 0.75% VAGINAL] Nitrofurantoin Macrocrystal 100 mg PO BID 10 Days #20 capsule 12/07/17 Unknown Rx [Nitrofurantoin] Allergies Allergy/AdvReac Type Severity Reaction Status Date / Time Penicillins Allergy Itching Verified 01/08/17 11:10 ED Review of Systems ROS: Stated complaint: GUO/BLADDER INFECTION Other details as noted in HPI Constitutional: denies: chills, fever Respiratory: denies: cough, shortness of breath, wheezing Cardiovascular: denies: chest pain, palpitations Gastrointestinal: denies: abdominal pain, nausea, diarrhea Genitourinary: frequency. denies: urgency, dysuria, hematuria, discharge, dyspareunia Neurological: headache. denies: weakness, paresthesias ED Past Medical Hx - Past Medical History Previous Medical History?: No Additional medical history: fibroids, Vaginal dleivery x 3 - Surgical History Past Surgical History?: No - Social History Smoking Status: Never Smoker Substance Use Type: None - Medications Home Medications: Home Medications Medication Instructions Recorded Confirmed Last Taken Type Loratadine/Pseudoephedrine 1 tab PO Q12H PRN #30 tablet 01/09/17 Unknown Rx [Claritin-D 12HR] Nitrofurantoin [place]/M-Cryst 100 mg PO Q12HR #6 capsule 01/09/17 Unknown Rx [Macrobid CAP] Prednisone [predniSONE 10 mg 10 mg PO .TAPER #1 tab.ds.pk 01/09/17 Unknown Rx (6-Day Pack, 21 Tabs)] Fluticasone [Flonase] 1 spray NS QDAY #1 bottle 01/18/17 Unknown Rx Ibuprofen [Motrin 600 MG tab] 600 mg PO Q8H PRN #45 tablet 01/18/17 Unknown Rx Loratadine/Pseudoephedrine 1 each PO BID #60 tab.er.12h 01/18/17 Unknown Rx [Allergy-Congestion Rlf-D 12Hr] Ibuprofen [Motrin 600 MG tab] 600 mg PO Q8H PRN #30 tablet 05/07/17 Unknown Rx Ibuprofen [Motrin] 600 mg PO Q8H PRN #30 tablet 06/22/17 Unknown Rx Ondansetron [Zofran Odt] 4 mg PO QID PRN #20 tab.rapdis 06/22/17 Unknown Rx metroNIDAZOLE 0.75% [Vandazole 1 applicator VG QHS #5 tube 06/22/17 Unknown Rx 0.75% VAGINAL] Nitrofurantoin Macrocrystal 100 mg PO BID 10 Days #20 capsule 12/07/17 Unknown Rx [Nitrofurantoin] ED Physical Exam - General Limitations: No Limitations General appearance: alert, in no apparent distress - Head Head exam: Present: atraumatic, normocephalic - Eye Eye exam: Present: normal appearance, PERRL, EOMI Pupils: Present: normal accommodation - Respiratory Respiratory exam: Present: normal lung sounds bilaterally. Absent: respiratory distress, wheezes - Cardiovascular Cardiovascular Exam: Present: regular rate, normal rhythm. Absent: systolic murmur, diastolic murmur, rubs, gallop - Back Exam Back exam: Present: normal inspection, full ROM. Absent: tenderness, CVA tenderness (R), CVA tenderness (L) - Neurological Exam Neurological exam: Present: alert, oriented X3, normal gait ED Course Vital Signs 12/07/17 09:59 Temperature 98.2 F Pulse Rate 73 Respiratory 16 Rate Blood Pressure 106/57 O2 Sat by Pulse 100 Oximetry ED Medical Decision Making - Medical Decision Making This is a 27 y.o. female presents with right lower back pain, frequency, and malodorous for 4 days. She is but unsure of gestation. She has not f/u with OUTBOUND SALES ADVISOR, uninsured. Denies nausea, vomiting, fever, discharge, pelvic pressure, and dysuria. UA ordered, possible UTI, urine Culture ordered. Given tylenol in ER for headache. Start nitrofurantoin 100 mg po daily for 10 days. F/U OUTBOUND SALES ADVISOR Referred to Dr. Ferreira Critical care attestation.: If time is entered above; I have spent that time in minutes in the direct care of this critically ill patient, excluding procedure time. ED Disposition Clinical Impression: UTI (urinary tract infection) during Qualifiers: Trimester: unspecified trimester Qualified Code(s): O23.40 - Unspecified infection of urinary tract in , unspecified trimester Migraine Qualifiers: Migraine type: without aura Status migrainosus presence: without status migrainosus Intractability: not intractable Qualified Code(s): G43.009 - Migraine without aura, not intractable, without status migrainosus Disposition: DC- TO HOME OR SELFCARE Is pt being admited?: No Does the pt Need Aspirin: No Condition: Stable Instructions: Urinary Tract Infection in Women (ED), Migraine Headache (ED) Additional Instructions: Increase fluid intake. Wipe from front to back. Take tylenol when headache starts to prevent migraine. Follow up with VIBRATION TECHNICIAN/Obstetrics Dr. Ferreira with My OUTBOUND SALES ADVISOR. Prescriptions: Nitrofurantoin Macrocrystal [Nitrofurantoin] 100 mg PO BID 10 Days #20 capsule Referrals: PRIMARY CARE, [Primary Care Provider] - 3-5 Days ILEANA FERREIRA MD [Staff Physician] - 3-5 Days [facility] [place] [Outside] - 3-[facility] Days [facility] - 3-5 Days [facility] [Outside] - 3-5 Days Time of Disposition: 16:30 Print Language: SRI LANKAN
[2017-12-07] MEDS ORDERED: TYLENOL PO ONE (16:32)
== END 2017-12-07 16:53 | disposition home or self-care (01) ==
LOC: ED 09:08
DX: O23.40 Unspecified infection of urinary tract in pregnancy, unspecified trimester (principal); O99.350 Diseases of the nervous system complicating pregnancy, unspecified trimester; G43.909 Migraine, unspecified, not intractable, without status migrainosus; O34.10 Maternal care for benign tumor of corpus uteri, unspecified trimester; D25.9 Leiomyoma of uterus, unspecified; Z3A.00 Weeks of gestation of pregnancy not specified; Z88.0 Allergy status to penicillin
CPT/HCPCS: 81001; 81025; 87086; 99283

== ENCOUNTER 2017-12-17 11:01 | Emergency (ER) | payer SELFPAY ==
[2017-12-17 12:05] VITALS: BP 117/60
--- NOTE | 2017-12-17 13:50 | Emergency Department Report ---
Minor Respiratory - HPI Chief Complaint: Upper Respiratory Infection Stated Complaint: COUGH/THROAT/CHEST SORE Time Seen by Provider: 12/17/17 13:40 Duration: 2 Days Pain Location: Facial, Throat, Nose, Ear, Chest Severity: moderate Minor Respiratory: Yes Sore Throat, Yes Able to Tolerate Fluids, Yes Cough, Yes Sick Contacts, No Rhinorrhea, No Ear Pain, No Hemoptysis, No Chest Pain, No Shortness of Breath, No Fever Other History: She was seen in the [facility] ER 5 days ago. She was told she had a UTI. She was given a prescription for Macrobid but she was not able to get it filled the pharmacy didn't have it. ED Review of Systems ROS: Stated complaint: COUGH/THROAT/CHEST SORE Other details as noted in HPI Comment: All other systems reviewed and negative Constitutional: see HPI, malaise Eyes: as per HPI ENT: as per HPI, throat pain Respiratory: no symptoms reported, cough Cardiovascular: as per HPI Endocrine: no symptoms reported Gastrointestinal: as per HPI. denies: abdominal pain, nausea, vomiting, diarrhea, constipation, hematemesis, melena Genitourinary: as per HPI, dysuria, other (patient is 8 weeks last menstrual period 1125). denies: urgency Musculoskeletal: as per HPI. denies: back pain Skin: as per HPI. denies: rash, lesions Neurological: as per HPI. denies: headache, weakness, numbness, paresthesias, confusion Psychiatric: as per HPI Hematological/Lymphatic: as per HPI ED Past Medical Hx - Past Medical History Previous Medical History?: Yes Additional medical history: fibroids, Vaginal dleivery x 3 - Surgical History Past Surgical History?: No - Family History Family history: no significant - Social History Smoking Status: Never Smoker Substance Use Type: Non Opiate Pain - Medications Home Medications: Home Medications Medication Instructions Recorded Confirmed Last Taken Type Oseltamivir [Tamiflu] 75 mg PO BID #10 cap 12/17/17 Unknown Rx Minor Respiratory Exam - Exam General: Vital signs noted. No distress. Alert and acting appropriately. HEENT: Yes Pharyngeal Erythema, Yes Moist Mucous Membranes, No Pharyngeal Exudates, No Rhinorrhea, No Conjuctival Injection, No Frontal Tenderness, No Maxillary Tenderness Ear: Neither TM Bulge, Neither TM Erythema, Neither EAC Pain, Neither EAC Discharge Neck: Yes Supple, No Adenopathy Lungs: Yes Good Air Exchange, Yes Cough, No Wheezes, No Ronchi, No Stridor, No Labored Respirations, No Retractions, No Use of Accessory Muscles, No Other Abnormal Lung Sounds Heart: Yes Regular, No Murmur Abdomen: Yes Normal Bowel Sounds, No Tenderness, No Peritoneal Signs Skin: No Rash, No Edema Neurologic: Alert and oriented, no deficits. Musculoskeletal: Unremarkable. ED Course Vital Signs 12/17/17 11:59 Temperature 98.6 F Pulse Rate 92 H Respiratory 18 Rate Blood Pressure 117/60 O2 Sat by Pulse 100 Oximetry - Reevaluation(s) Reevaluation #1: 12/17/17 16:34 to er w sick children pos flu went to [facility] [place] last week told she had uti no anbx bc pharm had to order it now w no dysuria more concerned w flu like s/s ED Medical Decision Making - Medical Decision Making known 8 w approx per pt no vag bleed or dc here w 3 sick children - Differential Diagnosis flu Critical care attestation.: If time is entered above; I have spent that time in minutes in the direct care of this critically ill patient, excluding procedure time. ED Disposition Clinical Impression: Influenza, , UTI (urinary tract infection) Disposition: DC-01 TO HOME OR SELFCARE Is pt being admited?: No Does the pt Need Aspirin: No Condition: Stable Additional Instructions: Rest Hydrate well Initially with water and/or Gatorade Motrin and/or Tylenol alternating for fever [id number]-[id number] Delsym for cough cool mist humification to room may help Good hand washing All of the pricer in 48 hours for recheck Medication is ordered today SEE OBGYN THIS WEEK TO BE SURE YOU ARE RESPONDING URINE CULTURE HAS BEEN SENT AND WE WILL CALL YOU IF WE NEED ADDITIONAL ANTIBIOTICS Prescriptions: Oseltamivir [Tamiflu] 75 mg PO BID #10 cap Referrals: [facility] [Outside] - 3-5 Days NEHA FRANCO MD [Primary Care Provider] - 3-5 Days CUAUHTEMOC WAYNE MD [Staff Physician] - 3-5 Days Forms: Work/School Release Form(ED) Time of Disposition: 13:49
[2017-12-17 14:07] LABS: Bacteria,Urine 1+ /HPF (Negative); Bilirubin,Urine NEG (Negative); Blood,Urine NEG (Negative); Color,Urine Yellow (Yellow); Mucus,Urine FEW /HPF; Nitrite,Urine NEG (Negative); Protein,Urine <15 mg/dL mg/dL (Negative)
[2017-12-17] MEDS ORDERED: XYLOCAINE 1% MPF 5 mL INFILTRATI ONE (14:34)
[2017-12-17] MEDS ORDERED: ROCEPHIN IM ONE (14:34)
== END 2017-12-17 14:58 | disposition home or self-care (01) ==
LOC: ED 11:01
DX: O26.891 Other specified pregnancy related conditions, first trimester (principal); J11.1 Influenza due to unidentified influenza virus with other respiratory manifestations; Z3A.08 8 weeks gestation of pregnancy
CPT/HCPCS: 81001; 87086; 87400; 96372; 99283; J0696

== ENCOUNTER 2018-03-29 13:14 | Outpatient (CLI) | payer MEDICAID ==
[2018-03-29] MEDS ORDERED: TYLENOL PO ONE (13:32)
[2018-03-29 14:05] LABS: Bilirubin,Urine NEG (Negative); Blood,Urine NEG (Negative); Color,Urine Yellow (Yellow); Mucus,Urine FEW /HPF; Protein,Urine <15 mg/dL mg/dL (Negative); Urobilinogen,Urine < 2.0 mg/dL (<2.0)
[2018-03-29 14:12] LABS: Amphetamine Screen,Urine PRESUMPTIVE NEGATIVE; Benzodiazepines Screen,Urine PRESUMPTIVE NEGATIVE; Cannabinoid Screen,Urine PRESUMPTIVE NEGATIVE; Cocaine Screen,Urine PRESUMPTIVE NEGATIVE; Methadone Screen,Urine PRESUMPTIVE NEGATIVE; Opiate Screen,Urine PRESUMPTIVE NEGATIVE
[2018-03-29] MEDS ORDERED: IMITREX PO ONE (14:30)
[2018-03-29 15:07] VITALS: BP 105/59
== END 2018-03-29 17:20 | disposition home or self-care (01) ==
LOC: TRG 13:14
PROVIDERS: ATTEND Obstetrics & Gynecology
DX: O47.02 False labor before 37 completed weeks of gestation, second trimester (principal); Z79.899 Other long term (current) drug therapy; Z3A.22 22 weeks gestation of pregnancy
CPT/HCPCS: 59025; 80307; 81001

== ENCOUNTER 2018-04-01 11:46 | Outpatient (CLI) | payer MEDICAID ==
[2018-04-01] MEDS ORDERED: LACTATED RINGERS 500 ML IV ONE (12:14)
[2018-04-01 13:00] LABS: Bacteria,Urine 1+ /HPF (Negative); Bilirubin,Urine NEG (Negative); Blood,Urine NEG (Negative); Color,Urine Yellow (Yellow); Protein,Urine <15 mg/dL mg/dL (Negative); Urobilinogen,Urine < 2.0 mg/dL (<2.0)
== END 2018-04-01 13:10 | disposition home or self-care (01) ==
LOC: TRG 11:46
PROVIDERS: ATTEND Obstetrics & Gynecology
DX: O47.02 False labor before 37 completed weeks of gestation, second trimester (principal); Z3A.22 22 weeks gestation of pregnancy
CPT/HCPCS: 81001

== ENCOUNTER 2018-07-05 11:09 | Outpatient (CLI) | payer MEDICAID, OTHER ==
[2018-07-05 11:38] VITALS: BP 116/57
[2018-07-05 12:05] LABS: Bacteria,Urine 2+ /HPF (Negative); Bilirubin,Urine NEG (Negative); Blood,Urine NEG (Negative); Color,Urine Yellow (Yellow); Mucus,Urine FEW /HPF; Protein,Urine <15 mg/dL mg/dL (Negative); Urobilinogen,Urine < 2.0 mg/dL (<2.0)
[2018-07-05] MEDS ORDERED: LACTATED RINGERS 500 ML IV ONE (12:51)
--- NOTE | 2018-07-05 13:44 | Ultrasound Report ---
ULTRASOUND BIOPHYSICAL PROFILE: History: well being Technique: Transabdominal ultrasound with Doppler interrogation. 2 - breathing movements 2 - movements 2 - posture and tone 2 - Qualitative amniotic fluid volume 8 - TOTAL SCORE OF POSSIBLE 8 Heart Rate (bpm) 157
--- NOTE | 2018-07-05 13:45 | Ultrasound Report ---
ULTRASOUND OB LIMITED History: well being Technique: Transabdominal ultrasound with Doppler interrogation. Gestation: Single Position: Cephalic Amniotic Fluid: Normal GANESH = 21.8 cm Heart Rate: 157 BPM
== END 2018-07-05 13:45 | disposition home or self-care (01) ==
LOC: TRG 11:09
PROVIDERS: ATTEND Obstetrics & Gynecology
DX: O47.03 False labor before 37 completed weeks of gestation, third trimester (principal); Z3A.36 36 weeks gestation of pregnancy; Z88.0 Allergy status to penicillin
CPT/HCPCS: 76815; 76819; 81001

== ENCOUNTER 2018-07-25 20:36 | Inpatient (IN) | payer MEDICAID ==
[2018-07-25] MEDS ORDERED: LACTATED RINGERS 1,000 ML IV ONE (23:06)
--- NOTE | 2018-07-26 01:21 | History and Physical Report ---
History of Present Illness Date of examination: 07/26/18 History of present illness: Patient presented to labor and delivery with complaints of irregular contractions on exam the patient's cervix was 3-4 cm which was a little different from exam a week ago the patient had category 1 heart tracing. The patient was allowed to walk and on return for reexamination of her cervix which had not changed patient's tracing of show tachycardia with some variable D cells. That did not completely resolve with hydration the patient admitted due to nonreassuring heart tracing. Menstrual History Regularity: regular Menses every: 28 days Duration: 3 LMP: 10/21/2017 LMP reliability: definite LMP character: normal test type: urine test Date: 04/09/2018 BC at conception: none Planned ? yes EDC Calculations LMP: 07/28/2018 EDC Confirmation: 07/28/2018 Past History : 4 Term Births: 3 Living Children: 3 Para: 3 # 1 Delivery date: 2008 Weeks Gestation: 40 Delivery type: Anesthesia type: none Delivery [facility]: [facility] Sex: Male weight: 8-11 # 2 Delivery date: 2010 Weeks Gestation: 38 Delivery type: Anesthesia type: none Delivery location: [facility] Sex: Male weight: 6-14 # 3 Delivery date: 2012 Weeks Gestation: 39 Delivery type: Anesthesia type: none Delivery location: [facility] Infant Sex: Female weight: 6-14 Risk Factors: Smoked Tobacco Use: Never smoker Smokeless Tobacco Use: Never Passive smoke exposure: no Drug use: no Alcohol use: no Past Surgical History: Negative Past Surgical History Past Medical History Surgery (Non-terrazzo worker): Negative Past Surgical History Abnormal PAP: negative CE Exposure: negative Infertility: negative Uterine Anomaly: negative Uterine Surgery (not C/S): negative Other Gynecologic Problems: negative Medical History Comments: negaitve Family Hx: mother-DM, HTN Social Hx: no e/t/d signle Infection History Varicella/Chicken Pox Status: Previous Disease Genetic History Congenital Heart Defect: Mom: no Monica Disease: Mom: no Thalassemia Mom: no Neural Tube Defect Mom: no Down's Syndrome Mom: no Troy-Sachs Mom: no Sickle Cell Disease/Trait Mom: no Hemophilia Mom: no Muscular Dystrophy Mom: no Cystic Fibrosis Mom: no Lagrange Chorea Mom: no Mental Retardation Mom: no Fragile X Mom: no Other Genetic/Chromosomal Disorder Mom: no Child w/other defect Mom: no Enviromental Exposures Xray Exposure: no Medication, drug, or alcohol use since LMP: no Chemical/Other Exposure: no Exposure to Cat Liter: no Hx of Parvovirus (Fifth Disease): no Occupational Exposure to Children: none Current Allergies (reviewed today): AMOXICILLIN (Critical) Past History Past Medical History: other (see HPI) Past Surgical History: other (see HPI) 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) Family/Genetic History: other (see HPI) Social history: other (see HPI) - Obstetrical History Expected Date of Delivery: 07/28/18 Actual Gestation: 39 Week(s) 6 Day(s) : 4 Para: 3 Hx # Term Pregnancies: 3 Number of Pregnancies: 0 Spontaneous Abortions: 0 Induced : 0 Number of Living Children: 3 Medications and Allergies Allergies Allergy/AdvReac Type Severity Reaction Status Date / Time Penicillins Allergy Intermediate Itching Verified 07/05/18 11:30 Home Medications Medication Instructions Recorded Confirmed Last Taken Type Ferrous Sulfate [Feosol] 325 mg PO QDAY 03/29/18 07/26/18 1 Week Ago History ~07/19/18 Vit-Fe Fumar-FA [ 1 tab PO QDAY 03/29/18 07/26/18 1 Day Ago History Vitamin] ~07/25/18 - Vital Signs Vital signs: Vital Signs Temp Pulse Resp BP Pulse Ox 98.1 F 80 18 120/58 98 07/25/18 21:00 07/25/18 21:00 07/25/18 21:00 07/25/18 21:00 07/25/18 21:00 Temp Pulse Resp BP Pulse Ox 98.1 F 84 18 120/58 100 07/25/18 21:00 07/25/18 21:30 07/25/18 21:00 07/25/18 21:00 07/25/18 21:30 - Physical Exam Breasts: Positive: deferred Cardiovascular: Regular rate Lungs: Positive: Normal air movement Abdomen: Positive: normal appearance, soft Cervix: Positive: other (Per RN) Anus/Rectum: Positive: heme positive - Obstetrical FHR: category 2 Uterine Contraction Pattern: Irregular Results Result Diagrams: 07/26/18 18:45 All other labs normal. Assessment and Plan - Patient Problems (1) Group B streptococcal carriage complicating Current Visit: Yes Status: Acute (2) tachycardia Current Visit: Yes Status: Acute Plan to address problem: We will admit for GBS prophylaxis and probable augmentation of labor
[2018-07-26] MEDS ORDERED: PHENERGAN PO PRN (01:22)
[2018-07-26] MEDS ORDERED: BRETHINE SUB-Q PRN (01:22)
[2018-07-26] MEDS ORDERED: BRETHINE IVP PRN (01:22)
[2018-07-26] MEDS ORDERED: STADOL IV PRN (01:22)
[2018-07-26] MEDS ORDERED: XYLOCAINE 2% INFILTRATI ONE (01:22)
[2018-07-26 01:56] LABS: Hematocrit 30.4 % (30.3-42.9); Hemoglobin 10.2 gm/dl (10.1-14.3); Mean Corpuscular HGB Conc 34 % (30-34); Mean Corpuscular Hemoglobin 33 pg (28-32); Mean Corpuscular Volume 98 fl (79-97); Platelet Count 235 K/mm3 (140-440); Red Blood Count 3.11 M/mm3 (3.65-5.03); Red Cell Distribution Width 13.2 % (13.2-15.2)
[2018-07-26] MEDS ORDERED: CLEOCIN 900 MG/50 mL 900 MG/50 ML BAG IV SCH (02:00)
[2018-07-26] MEDS ORDERED: LACTATED RINGERS 1,000 ML IV SCH (02:00)
[2018-07-26] MEDS ORDERED: PITOCin/NS 20 UNIT/1000ML DRIP 20 UNITS/1,000 ML BAG IV SCH (02:00)
[2018-07-26 02:41] LABS: Hematocrit 30.1 % (30.3-42.9); Hemoglobin 10.3 gm/dl (10.1-14.3)
[2018-07-26] MEDS ORDERED: PITOCin/NS 30 UNIT/500ML 30 UNITS/500 ML BAG IV SCH ×3 (05:30→11:00)
--- NOTE | 2018-07-26 06:07 | Progress Note ---
Assessment and Plan Pt resting No voiced c/o AROM copious amt of fluids ISE/IUPC placed. Pitocin @ 8 mu SVE no chg Continue POC Re-eval as needed. Subjective - Subjective Date of service: 07/26/18 (AROM ) Principal diagnosis: IUP @ 39 weeks in labor Patient reports: movement normal Objective - Vital Signs Vital Signs: Vital Signs - 12hr 07/25/18 07/25/18 07/25/18 21:00 21:05 21:10 Temperature 98.1 F Pulse Rate 80 92 H 87 Respiratory 18 Rate Blood Pressure 120/58 Blood Pressure 120/58 [Left] Blood Pressure [Right] O2 Sat by Pulse 98 99 100 Oximetry 07/25/18 07/25/18 07/25/18 21:15 21:20 21:25 Temperature Pulse Rate 86 88 82 Respiratory Rate Blood Pressure Blood Pressure [Left] Blood Pressure [Right] O2 Sat by Pulse 99 98 99 Oximetry 07/25/18 07/26/18 07/26/18 21:30 01:53 02:24 Temperature Pulse Rate 84 82 87 Respiratory Rate Blood Pressure 128/65 116/69 Blood Pressure [Left] Blood Pressure [Right] O2 Sat by Pulse 100 Oximetry 07/26/18 07/26/18 07/26/18 03:53 04:23 05:49 Temperature 98.7 F Pulse Rate 86 88 77 Respiratory 18 Rate Blood Pressure 118/72 135/88 Blood Pressure [Left] Blood Pressure 110/60 [Right] O2 Sat by Pulse 99 Oximetry - Exam Breasts: deferred Cardiovascular: Regular rate Lungs: Normal air movement Abdomen: Present: normal appearance, soft. Absent: distention, tenderness Uterus: Present: normal FHR: auscultation normal, category 1 Uterine Contraction Monitor Mode: Internal Cervical Dilatation: 4 (AROM copious amt of fluid) Cervical Effacement Percentage: 50 (ISE/IUPC placed) station: -2 Uterine Contraction Pattern: Irregular Uterine Tone Measurement Phase: Resting Uterine Contraction Intensity: Mild Extremities: normal Deep Tendon Reflex Grade: Normal +2 - Labs Labs: Abnormal Labs 07/25/18 07/26/18 23:30 02:31 RBC 3.11 L Hct 30.1 L MCV 98 H MCH 33 H Laboratory Results - last 24 hr 07/25/18 07/25/18 07/26/18 23:30 23:30 02:31 WBC 5.7 RBC 3.11 L Hgb 10.2 10.3 Hct 30.4 30.1 L MCV 98 H MCH 33 H MCHC 34 RDW 13.2 Plt Count 235 Blood Type B POSITIVE Antibody Screen Negative
[2018-07-26 06:10] LABS: Amphetamine Screen,Urine PRESUMPTIVE NEGATIVE; Benzodiazepines Screen,Urine PRESUMPTIVE NEGATIVE; Cannabinoid Screen,Urine PRESUMPTIVE NEGATIVE; Cocaine Screen,Urine PRESUMPTIVE NEGATIVE; Methadone Screen,Urine PRESUMPTIVE NEGATIVE; Opiate Screen,Urine PRESUMPTIVE NEGATIVE
--- NOTE | 2018-07-26 07:44 | Procedure Note ---
OB Delivery Note - Delivery Date of Delivery: 07/26/18 Sr. Payroll Processor: JOSEY ALEX Estimated blood loss: 300cc - Vaginal Delivery presentation: vertex Delivery position: OA Intrapartum events: precipitous labor- <3hr Delivery induction: none Delivery augmentation: rupture of membranes Delivery monitor: internal FHT, internal uterine Route of delivery: Delivery placenta: spontaneous Delivery cord: 3 umbilical vessels Episiotomy: none Delivery laceration: none Anesthesia: none Delivery comments: live born male over intact perineum Baby skin to skin on mom's abdomen Cord clamped Placenta and membrane del complete and intact, 3 vessel cord. Pit IVFs. 7/9, EBL 300, wgt 7-3 Mom and baby remain LDR stable. - A at 1 minute: 7 at 5 minutes: 9 Gender: Male (wgt 7-3)
[2018-07-26] MEDS ORDERED: SODIUM CHLORIDE FLUSH SYRINGE 10 ML IV PRN (08:00)
[2018-07-26] MEDS ORDERED: ZOFRAN IV PRN (08:30)
[2018-07-26] MEDS ORDERED: TUCKS PAD TP PRN (08:30)
[2018-07-26] MEDS ORDERED: NORCO 5/325 PO PRN (08:30)
[2018-07-26] MEDS ORDERED: LANSINOH TP PRN (08:30)
[2018-07-26] MEDS ORDERED: TYLENOL PO PRN (08:30)
[2018-07-26] MEDS ORDERED: BENADRYL PO PRN (08:30)
[2018-07-26] MEDS ORDERED: MILK OF MAGNESIA PO PRN (08:30)
[2018-07-26] MEDS ORDERED: DULCOLAX PR PRN (10:00)
[2018-07-26] MEDS: MOTRIN PO SCH (14:27)
[2018-07-26 19:17] LABS: Hematocrit 30.3 % (30.3-42.9); Hemoglobin 10.1 gm/dl (10.1-14.3)
[2018-07-27] MEDS ORDERED: BOOSTRIX IM ONE (06:00)
--- NOTE | 2018-07-27 08:50 | Discharge Summary ---
Providers - Providers Date of Admission: 07/26/18 01:30 Date of discharge: 07/27/18 (desires d/c home today) Attending physician: SHANAE JHA Primary care physician: SHANAE JHA Hospitalization Reason for admission: labor Condition: Good Pertinent studies: post delivery H&H 10.12/26.3 Procedures: vaginal Hospital course: uncomplicated vaginal and course Disposition: DC- TO HOME OR SELFCARE - Discharge Diagnoses (1) Spontaneous vaginal delivery Status: Acute Core Measure Documentation - Palliative Care Palliative Care/ Comfort Measures: Not Applicable - Core Measures Any of the following diagnoses?: none Exam - Constitutional Vitals: Temp Pulse Resp BP Pulse Ox 98.7 F 71 18 114/69 98 07/27/18 04:00 07/27/18 04:00 07/27/18 04:00 07/27/18 04:00 07/26/18 15:43 General appearance: Present: no acute distress, well-nourished - EENT Eyes: Present: PERRL ENT: hearing intact, clear oral mucosa - Neck Neck: Present: supple, normal ROM - Respiratory Respiratory effort: normal Respiratory: bilateral: CTA - Cardiovascular Heart Sounds: Present: S1 & S2. Absent: rub, click - Extremities Extremities: pulses symmetrical, No edema Peripheral Pulses: within normal limits - Abdominal General gastrointestinal: Present: soft, non-tender, non-distended, normal bowel sounds Female genitourinary: Present: normal - Integumentary Integumentary: Present: clear, warm, dry - Musculoskeletal Musculoskeletal: gait normal, strength equal bilaterally - Psychiatric Psychiatric: appropriate mood/affect, intact judgment & insight - Neurologic Neurologic: CNII-XII intact, moves all extremities - Additional findings Additional findings: VSSAF, lochia scant, fundus firm, bottle feeding Plan Activity: no restrictions Diet: regular Follow up with: SHANAE JHA MD [Primary Care Provider] - 7 Days (Congratulations!! Please call [phone] to schedule your son's circumcision in 1 week and your visit in 4 weeks. Bring EMLA cream to your son's appointment and await further teaching. Call for any questions or concerns. )
[2018-07-27] MEDS ORDERED: M-M-R II VACCINE SUB-Q ONE (11:00)
[2018-07-27] MEDS: MOTRIN PO SCH ×2 (11:50→18:00)
[2018-07-28] MEDS: MOTRIN PO SCH (09:00)
[2018-07-28 10:03] VITALS: BP 116/53
== END 2018-07-28 15:00 | disposition home or self-care (01) | DRG 775 ==
LOC: TRG 20:36 → LD 07-26 01:30 → OB 07-26 09:44
PROVIDERS: ADMIT Obstetrics & Gynecology; ATTEND Obstetrics & Gynecology
PROC: 10E0XZZ Delivery of Products of Conception, External Approach (ICD-10-PCS; principal; 2018-07-26)
PROC: 10H07YZ Insertion of Other Device into Products of Conception, Via Natural or Artificial Opening (ICD-10-PCS; 2018-07-26)
PROC: 10907ZC Drainage of Amniotic Fluid, Therapeutic from Products of Conception, Via Natural or Artificial Opening (ICD-10-PCS; 2018-07-26)
DX: O99.824 Streptococcus B carrier state complicating childbirth (principal); O76 Abnormality in fetal heart rate and rhythm complicating labor and delivery; O62.3 Precipitate labor; Z3A.39 39 weeks gestation of pregnancy; Z37.0 Single live birth; Z83.3 Family history of diabetes mellitus; Z82.49 Family history of ischemic heart disease and other diseases of the circulatory system; Z88.0 Allergy status to penicillin
CPT/HCPCS: 36415; 80307; 85014; 85018; 85027; 86592; 86850; 86900; 86901; J2590; J7120

== ENCOUNTER 2019-05-14 09:18 | Emergency (ER) | payer MEDICAID ==
[2019-05-14 09:28] VITALS: BP 114/69
--- NOTE | 2019-05-14 10:26 | Emergency Department Report ---
ED General Adult HPI - General Chief complaint: Upper Respiratory Infection Stated complaint: CHEST/THROAT PAIN Time Seen by Provider: 05/14/19 09:58 Source: patient Mode of arrival: Ambulatory Limitations: No Limitations - History of Present Illness Initial comments: The patient presents to the emergency department with a chief complaint of a cough. Patient states that his were present for the last week and is worse at night. Patient denies fever or sick contacts. -: Gradual Severity scale (0 -10): 0 Improves with: none Worsens with: none Associated Symptoms: denies other symptoms Treatments Prior to Arrival: cold therapy - Related Data Home Medications Medication Instructions Recorded Confirmed Last Taken Ferrous Sulfate [Feosol] 325 mg PO QDAY 03/29/18 07/26/18 1 Week Ago ~07/19/18 Vit-Fe Fumar-FA [ 1 tab PO QDAY 03/29/18 07/26/18 1 Day Ago Vitamin] ~07/25/18 Previous Rx's Medication Instructions Recorded Last Taken Type Lidocain2.5%/Prilocai2.5% [Emla] 5 gm TP ONCE PRN #1 tube 07/27/18 Unknown Rx Ibuprofen [Motrin 800 MG tab] 800 mg PO Q8HR PRN #30 tablet 09/23/18 Unknown Rx ALBUTEROL Inhaler (OR & NICU) 2 puff IH Q4HR PRN #1 inhalation 05/14/19 Unknown Rx [ProAir HFA Inhaler] Benzonatate [Tessalon Perles] 100 mg PO Q8HR PRN #20 capsule 05/14/19 Unknown Rx Naproxen [Naprosyn] 500 mg PO BID PRN #20 tablet 05/14/19 Unknown Rx predniSONE [Deltasone] 20 mg PO DAILY #15 tablet 05/14/19 Unknown Rx Allergies Allergy/AdvReac Type Severity Reaction Status Date / Time Penicillins Allergy Intermediate Itching Verified 07/05/18 11:30 ED Review of Systems ROS: Stated complaint: CHEST/THROAT PAIN Other details as noted in HPI Constitutional: denies: chills, fever Eyes: denies: eye pain, eye discharge, vision change ENT: denies: ear pain, throat pain Respiratory: cough. denies: shortness of breath, wheezing Cardiovascular: denies: chest pain, palpitations Endocrine: no symptoms reported Gastrointestinal: denies: abdominal pain, nausea, diarrhea Genitourinary: denies: urgency, dysuria, discharge Musculoskeletal: denies: back pain, joint swelling, arthralgia Skin: denies: rash, lesions Neurological: denies: headache, weakness, paresthesias Psychiatric: denies: anxiety, depression Hematological/Lymphatic: denies: easy bleeding, easy bruising ED Past Medical Hx - Past Medical History Previous Medical History?: Yes Hx Hypertension: No Hx Congestive Heart Failure: No Hx Diabetes: No Hx Deep Vein Thrombosis: No Hx Renal Disease: No Hx Sickle Cell Disease: No Hx Seizures: No Hx Asthma: No Hx COPD: No Hx HIV: No Additional medical history: fibroids, Vaginal dleivery x 4 - Surgical History Past Surgical History?: No - Social History Smoking Status: Never Smoker Substance Use Type: None - Medications Home Medications: Home Medications Medication Instructions Recorded Confirmed Last Taken Type Ferrous Sulfate [Feosol] 325 mg PO QDAY 03/29/18 07/26/18 1 Week Ago History ~07/19/18 Vit-Fe Fumar-FA [ 1 tab PO QDAY 03/29/18 07/26/18 1 Day Ago History Vitamin] ~07/25/18 Lidocain2.5%/Prilocai2.5% [Emla] 5 gm TP ONCE PRN #1 tube 07/27/18 Unknown Rx Ibuprofen [Motrin 800 MG tab] 800 mg PO Q8HR PRN #30 tablet 09/23/18 Unknown Rx ALBUTEROL Inhaler (OR & NICU) 2 puff IH Q4HR PRN #1 inhalation 05/14/19 Unknown Rx [ProAir HFA Inhaler] Benzonatate [Tessalon Perles] 100 mg PO Q8HR PRN #20 capsule 05/14/19 Unknown Rx Naproxen [Naprosyn] 500 mg PO BID PRN #20 tablet 05/14/19 Unknown Rx predniSONE [Deltasone] 20 mg PO DAILY #15 tablet 05/14/19 Unknown Rx ED Physical Exam - General Limitations: No Limitations General appearance: alert, in no apparent distress - Head Head exam: Present: atraumatic, normocephalic - Eye Eye exam: Present: normal appearance, PERRL, EOMI - ENT ENT exam: Present: mucous membranes moist - Neck Neck exam: Present: normal inspection - Respiratory Respiratory exam: Present: wheezes. Absent: respiratory distress - Cardiovascular Cardiovascular Exam: Present: regular rate, normal rhythm. Absent: systolic murmur, diastolic murmur, rubs, gallop - GI/Abdominal GI/Abdominal exam: Present: soft, normal bowel sounds - Extremities Exam Extremities exam: Present: normal inspection - Back Exam Back exam: Present: normal inspection - Neurological Exam Neurological exam: Present: alert, oriented X3, CN II-XII intact. Absent: motor sensory deficit - Psychiatric Psychiatric exam: Present: normal affect, normal mood - Skin Skin exam: Present: warm, dry, intact, normal color. Absent: rash ED Course Vital Signs 05/14/19 09:26 Temperature 98.3 F Pulse Rate 80 Respiratory 16 Rate Blood Pressure 114/69 [Left] O2 Sat by Pulse 99 Oximetry ED Medical Decision Making - Medical Decision Making Discussed plan of care with patient X-ray of the chest all for but the patient politely declined after discussion of the pros and cons Critical care attestation.: If time is entered above; I have spent that time in minutes in the direct care of this critically ill patient, excluding procedure time. ED Disposition Clinical Impression: Bronchitis Disposition: DC-01 TO HOME OR SELFCARE Is pt being admited?: No Does the pt Need Aspirin: No Condition: Stable Instructions: Acute Bronchitis (ED), Chronic Bronchitis (ED) Referrals: JED LEGER MD [Primary Care Provider] - 3-5 Days [facility] [Provider Group] - 3-5 Days [facility] [Provider Group] - 3-5 Days Forms: Work/School Release Form(ED) Time of Disposition: 10:25
== END 2019-05-14 10:37 | disposition home or self-care (01) ==
LOC: ED 09:18
DX: J40 Bronchitis, not specified as acute or chronic (principal); Z79.899 Other long term (current) drug therapy; Z88.0 Allergy status to penicillin
CPT/HCPCS: 99282

== ENCOUNTER 2019-05-21 08:33 | Emergency (ER) | payer MEDICAID ==
[2019-05-21 08:59] VITALS: BP 129/80
[2019-05-21] MEDS ORDERED: DELTASONE PO ONE (11:06)
[2019-05-21] MEDS ORDERED: CLEOCIN PO ONE (11:06)
--- NOTE | 2019-05-21 11:37 | Emergency Department Report ---
ED Rash HPI - HPI Chief Complaint: Skin Rash Stated Complaint: INSECT BITE Time Seen by Provider: 05/21/19 10:12 Duration: 2 Days Location: Lower Extremities Rash Symptoms: Yes Itching, No Facial Swelling, No Tongue/Oral Swelling, No Breathing Difficulties, No Choking Sensation, No Wheezing/Dyspnea, No Peeling, No Blistering, No Fever, No Lightheaded, No Malaise, No Myalgias Severity: mild Other History: Patient presents complaining of each she denies any redness or left lateral lower leg from an aseptic bite that happened. A couple of days ago. Patient states that she noticed that the redness has gotten a little bigger. She denies fevers/chills/nausea vomiting or any other problems. ED Review of Systems ROS: Stated complaint: INSECT BITE Other details as noted in HPI Comment: All other systems reviewed and negative ED Past Medical Hx - Past Medical History Previous Medical History?: Yes Hx Hypertension: No Hx Congestive Heart Failure: No Hx Diabetes: No Hx Deep Vein Thrombosis: No Hx Renal Disease: No Hx Sickle Cell Disease: No Hx Seizures: No Hx Asthma: No Hx COPD: No Hx HIV: No Additional medical history: fibroids, Vaginal dleivery x 4 - Surgical History Past Surgical History?: No - Social History Smoking Status: Never Smoker Substance Use Type: None - Medications Home Medications: Home Medications Medication Instructions Recorded Confirmed Last Taken Type Ferrous Sulfate [Feosol] 325 mg PO QDAY 03/29/18 07/26/18 1 Week Ago History ~07/19/18 Vit-Fe Fumar-FA [ 1 tab PO QDAY 03/29/18 07/26/18 1 Day Ago History Vitamin] ~07/25/18 Lidocain2.5%/Prilocai2.5% [Emla] 5 gm TP ONCE PRN #1 tube 07/27/18 Unknown Rx Ibuprofen [Motrin 800 MG tab] 800 mg PO Q8HR PRN #30 tablet 09/23/18 Unknown Rx ALBUTEROL Inhaler (OR & NICU) 2 puff IH Q4HR PRN #1 inhalation 05/14/19 Unknown Rx [ProAir HFA Inhaler] Benzonatate [Tessalon Perles] 100 mg PO Q8HR PRN #20 capsule 05/14/19 Unknown Rx predniSONE [Deltasone] 20 mg PO DAILY #15 tablet 05/14/19 Unknown Rx Clindamycin [Clindamycin CAP] 300 mg PO BID #20 capsule 05/21/19 Unknown Rx Naproxen [Naprosyn TAB] 500 mg PO BID PRN #20 tablet 05/21/19 Unknown Rx Rash Exam - Exam General: Vital signs noted. No distress. Alert and acting appropriately. HEENT: No Periorbital Edema, No Conjuctival Injection, No Chemosis, No Perioral Edema, No Tongue Edema, No Uvular Edema, No Compromised Airway, No Drooling Lungs: Yes Good Air Exchange (Normal Breath Sounds), No Wheezes, No Ronchi, No Stridor, No Cough, No Labored Respirations, No Retractions, No Use of Accessory Muscles, No Other Abnormal Lung Sounds Heart: Yes Regular, No Murmur Skin: Yes Erythema (left lateral leg), No Urticarial Rash, No Maculopapular Rash, No Morbilliform rash, No Bulla(e), No Excoriations, No Weeping, No Tenderness, No Edema, No Encrustations, No Other Other: Positive: Abdomen Normal, Neurologic Normal, Musculoskeletal Normal ED Course Vital Signs 05/21/19 08:57 Temperature 98.1 F Pulse Rate 86 Respiratory 18 Rate Blood Pressure 129/80 O2 Sat by Pulse 95 Oximetry ED Medical Decision Making - Medical Decision Making 28-year-old female presents presents with insect bite. Patient received prednisone and clindamycin ED. Discussed wound compression 3 times a day. Vital signs are normal patient is in no acute distress. Critical care attestation.: If time is entered above; I have spent that time in minutes in the direct care of this critically ill patient, excluding procedure time. ED Disposition Clinical Impression: Insect bite, Cellulitis Disposition: DC-01 TO HOME OR SELFCARE Is pt being admited?: No Does the pt Need Aspirin: No Condition: Stable Instructions: Cellulitis (ED), Insect Bite or Sting (ED) Additional Instructions: Make sure to follow up with the primary care physician as discussed. Take all your medications as you've been prescribed. If you have any worsening symptoms or develop new symptoms please return to ED immediately. Prescriptions: Clindamycin [Clindamycin CAP] 300 mg PO BID #20 capsule Naproxen [Naprosyn TAB] 500 mg PO BID PRN #20 tablet PRN Reason: pain Referrals: TATIANNA TELLES MD [Primary Care Provider] - 3-5 Days [facility] [Provider Group] - 3-5 Days Forms: Work/School Release Form(ED) Time of Disposition: 11:39
== END 2019-05-21 12:02 | disposition home or self-care (01) ==
LOC: ED 08:33
DX: S80.862A Insect bite (nonvenomous), left lower leg, initial encounter (principal); L03.116 Cellulitis of left lower limb; Z79.899 Other long term (current) drug therapy; Z88.0 Allergy status to penicillin; W57.XXXA Bitten or stung by nonvenomous insect and other nonvenomous arthropods, initial encounter; Y93.89 Activity, other specified; Y92.89 Other specified places as the place of occurrence of the external cause; Y99.8 Other external cause status
CPT/HCPCS: 99282; J7512

== ENCOUNTER 2019-11-18 21:49 | Emergency (ER) | payer MEDICAID ==
[2019-11-18 22:26] VITALS: BP 123/75
--- NOTE | 2019-11-19 05:43 | Emergency Department Report ---
ED Rash HPI - HPI Chief Complaint: Skin Rash Stated Complaint: INSECT BITE RT LEG Time Seen by Provider: 11/19/19 04:46 Duration: 2 Days Location: Lower Extremities Suspected Cause: Insect Rash Symptoms: Yes Itching, No Tongue/Oral Swelling, No Breathing Difficulties, No Wheezing/Dyspnea, No Blistering, No Fever, No Malaise, No Myalgias Severity: mild ED Review of Systems ROS: Stated complaint: INSECT BITE RT LEG Other details as noted in HPI Comment: All other systems reviewed and negative ED Past Medical Hx - Past Medical History Hx Hypertension: No Hx Congestive Heart Failure: No Hx Diabetes: No Hx Deep Vein Thrombosis: No Hx Renal Disease: No Hx Sickle Cell Disease: No Hx Seizures: No Hx Asthma: No Hx COPD: No Hx HIV: No Additional medical history: fibroids, Vaginal dleivery x 4 - Surgical History Past Surgical History?: No - Social History Smoking Status: Never Smoker Substance Use Type: None - Medications Home Medications: Home Medications Medication Instructions Recorded Confirmed Last Taken Type Ferrous Sulfate [Feosol] 325 mg PO QDAY 03/29/18 07/26/18 1 Week Ago History ~07/19/18 Vit-Fe Fumar-FA [ 1 tab PO QDAY 03/29/18 07/26/18 1 Day Ago History Vitamin] ~07/25/18 Lidocain2.5%/Prilocai2.5% [Emla] 5 gm TP ONCE PRN #1 tube 07/27/18 Unknown Rx Ibuprofen [Motrin 800 MG tab] 800 mg PO Q8HR PRN #30 tablet 09/23/18 Unknown Rx ALBUTEROL Inhaler (OR & NICU) 2 puff IH Q4HR PRN #1 inhalation 05/14/19 Unknown Rx [ProAir HFA Inhaler] Benzonatate [Tessalon Perles] 100 mg PO Q8HR PRN #20 capsule 05/14/19 Unknown Rx predniSONE [Deltasone] 20 mg PO DAILY #15 tablet 05/14/19 Unknown Rx Clindamycin [Clindamycin CAP] 300 mg PO BID #20 capsule 05/21/19 Unknown Rx Naproxen [Naprosyn TAB] 500 mg PO BID PRN #20 tablet 05/21/19 Unknown Rx Rash Exam - Exam General: Vital signs noted. No distress. Alert and acting appropriately. HEENT: No Periorbital Edema, No Conjuctival Injection, No Chemosis, No Perioral Edema, No Tongue Edema Lungs: Yes Good Air Exchange, No Ronchi, No Stridor, No Cough, No Labored Respirations, No Retractions Heart: Yes Regular, No Murmur Front/Back of Body, Lg (Color): 1 - area of redness and swelling. Skin: Yes Erythema (no lymphangitis. No lymphadenopathy noted. No induration. Minimal warmth), Yes Edema, No Maculopapular Rash, No Morbilliform rash, No Bulla(e) ED Course Vital Signs 11/18/19 11/18/19 22:20 23:12 Temperature 98.6 F 98.5 F Pulse Rate 79 77 Respiratory 18 18 Rate Blood Pressure 123/75 123/75 O2 Sat by Pulse 97 100 Oximetry Critical care attestation.: If time is entered above; I have spent that time in minutes in the direct care of this critically ill patient, excluding procedure time. ED Disposition Clinical Impression: Insect bite, Erythema Disposition: DC-01 TO HOME OR SELFCARE Is pt being admited?: No Does the pt Need Aspirin: No Condition: Stable Instructions: Insect Bite or Sting (ED) Referrals: PRIMARY CARE, [Primary Care Provider] - 3-5 Days
== END 2019-11-19 06:00 | disposition home or self-care (01) ==
LOC: ED 21:49
DX: T14.8XXA Other injury of unspecified body region, initial encounter (principal); L53.8 Other specified erythematous conditions; Z79.899 Other long term (current) drug therapy; Z88.0 Allergy status to penicillin; W57.XXXA Bitten or stung by nonvenomous insect and other nonvenomous arthropods, initial encounter; Y93.89 Activity, other specified; Y92.89 Other specified places as the place of occurrence of the external cause; Y99.8 Other external cause status
CPT/HCPCS: 99282

== ENCOUNTER 2020-09-23 11:07 | Emergency (ER) | payer MEDICAID ==
[2020-09-23 12:10] VITALS: BP 116/57
--- NOTE | 2020-09-23 13:38 | Emergency Department Report ---
Chief Complaint: Upper Respiratory Infection Stated Complaint: COUGH/NO TASTE OR SMELL Time Seen by Provider: 09/23/20 13:32 - HPI History of Present Illness: 29 y o female presents at 24 weeks gestation followed by My obgyn presents with flu like sx x 7 days with loss of taste and smell x 2days wanting covid testing. Patient denies fever/chills/shortness of breath/chest pain/difficulty breathing/headache/coughing or any other symptoms. Patient states she was t aking Tylenol. She also denies vaginal bleed abdominal pain that pelvic pain of any kind. - ROS Review of Systems: As noted in HPI - Exam Vital Signs: Vital Signs 09/23/20 12:09 Temperature 98.6 F Pulse Rate 84 Respiratory 18 Rate Blood Pressure 116/57 [Right] O2 Sat by Pulse 99 Oximetry Physical Exam: GENERAL: Alert and oriented x3, no apparent distress, Normal Gait, atraumatic. HEAD: Head is normocephalic and a-traumatic. LUNGS: Symetrical with respiration, No wheezing, no rales or crackles, CTAB. HEART: S1, S2 present, regular rate and rhythm without murmur, no rubs, no gallops. Non tender to palpation ABDOMEN: No organomegaly was noted,Positive bowel sounds, soft, and non- distended. Nontender to palpation on all Quadrants, NO CVA tenderness. SKIN: Warm and dry, No lesions, No ulceration or induration present. MSE screening note: Focused history and physical exam performed. Due to findings the following was ordered: ED Medical Decision Making - Medical Decision Making 29-year-old male presents with upper respiratory symptoms Fever resolved no fever during the ED stay. Discussed with patient symptomatic relief with [id number] medications. Discussed with patient COVID-19 testing is appropriate and mandatory and should be done as soon as possible. Discussed with patient for 14-day quarantine if test is positive. Discussed worsening of symptoms patient should return to ED immediately. Patient oxygen saturation stayed at 98% on room air during exertion and after exertion. Discussed continue Tylenol as needed for fever and pain. Discussed increase fluids and diet intake. Discussed rest much needed. Discussed daily vitamin C for immune booster. Discussed follow-up with [facility] in 3-5 days. Patient verbally states she understands and will comply the following instructions and follow-up Vital signs stable. ED Disposition for [facility] Clinical Impression: URI (upper respiratory infection) Disposition: MED SCREENING EXAM-LEFT Is pt being admited?: No Does the pt Need Aspirin: No Condition: Stable Instructions: COVID-19, Upper Respiratory Infection (ED) Additional Instructions: follow up to get tested keep your OB appt Quarantine x 1-0 days If worsening of sx return to ED Referrals: PRIMARY CARE, [Primary Care Provider] - 3-5 Days Forms: Work/School Release Form(ED) Time of Disposition: 13:37
== END 2020-09-23 15:16 | disposition left against medical advice (07) ==
LOC: ED 11:07
DX: J06.9 Acute upper respiratory infection, unspecified (principal); Z88.0 Allergy status to penicillin; Z53.21 Procedure and treatment not carried out due to patient leaving prior to being seen by health care provider